=== PATIENT | female | born 1990 | race Caucasian/White ===

== ENCOUNTER 2017-01-12 07:47 | Emergency (ER) | payer BC, MEDICAID ==
[2017-01-12 08:03] VITALS: BP 133/81
--- NOTE | 2017-01-12 09:30 | UC ---
Shoulder Pain HPI - HPI Summary HPI Summary: WAS PUTTING CHILD IN CAR SEAT YESTERDAY WHEN SHE FELT A POP IN HER LEFT UPPER BACK/SHOULDER AREA. HAD A HARD TIME SLEEPING DUE TO DISCOMFORT. IBUPROFEN NOT HELPING. - History of Current Complaint Chief Complaint: UCUpperExtremity Stated Complaint: SHOULDER/BACK INJURY Time Seen by Provider: 01/12/17 08:34 Hx Obtained From: Patient Hx Last Menstrual Period: 01/05/17 Onset/Duration: Sudden Onset, Lasting Hours, Still Present Timing: Constant Severity Initially: Moderate Severity Currently: Moderate Location Of Pain: Is Discrete @ - LEFT UPPER BACK Pain Intensity: 7 Pain Scale Used: 0-10 Numeric Character: Sharp Aggravating Factor(s): Movement Alleviating Factor(s): Rest Associated Signs And Symptoms: Positive: Negative - Allergies/Home Medications Allergies/Adverse Reactions: Allergies Allergy/AdvReac Type Severity Reaction Status Date / Time Banana Allergy Intermediate Anaphylatic Verified 01/12/17 08:03 Shock Tree Nuts Allergy Intermediate Anaphylatic Verified 01/12/17 08:03 Shock Topiramate [From Topamax] AdvReac Intermediate Nausea And Verified 01/12/17 08: 03 Vomiting Home Medications: Home Medications Venlafaxine EXT RELEASE CAP* [Effexor Xr CAP*] 1 PO DAILY 01/12/17 [History] PMH/Surg Hx/FS Hx/Imm Hx Endocrine History Of: Denies: Diabetes, Thyroid Disease Cardiovascular History Of: Denies: Cardiac Disorders, Hypertension, Pacemaker/ICD, Congestive Heart Failure Respiratory History Of: Reports: Bronchitis Denies: COPD, Asthma GI/ History Of: Denies: Ulcer, Renal Disease Psychological History Of: Reports: Anxiety, Depression - Surgical History Surgical History: Yes Surgery Procedure, Year, and Place: Right shoulder arthroscopy 5 years ago Csection 2016 - Family History Known Family History: Negative: Diabetes - Social History Alcohol Use: None Alcohol Amount: drank 11 beers last night Substance Use Type: None 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 Smoking Status (MU): Light Every Day Tobacco Smoker Type: Cigarettes Amount Used/How Often: 1/2 ppd - Immunization History Most Recent Influenza Vaccination: aug 2014 Most Recent Tetanus Shot: 2012 Most Recent Pneumonia Vaccination: unsure Review of Systems Constitutional: Negative Skin: Negative Respiratory: Negative Cardiovascular: Negative Gastrointestinal: Negative Musculoskeletal: Arthralgia, Myalgia All Other Systems Reviewed And Are Negative: Yes Physical Exam Triage Information Reviewed: Yes Appearance: Well-Appearing, No Pain Distress, Well-Nourished Vital Signs: Initial Vital Signs Temp 97.1 F 01/12/17 07:54 Pulse 86 01/12/17 07:54 Resp 18 01/12/17 07:54 BP 133/81 01/12/17 07:54 Pulse Ox 98 01/12/17 07:54 Vital Signs Reviewed: Yes Eyes: Positive: Conjunctiva Clear ENT: Positive: Hearing grossly normal Neck: Positive: Supple Respiratory: Positive: No respiratory distress, No accessory muscle use Cardiovascular: Positive: Pulses Normal Abdomen Description: Positive: Soft Musculoskeletal: Positive: ROM Intact, No Edema, Other: - TTP LEFT TRAPEZIOUS MUSCLE. NO BONY TENDERNESS Neurological: Positive: Alert Psychological: Positive: Age Appropriate Behavior Skin: Negative: rashes Shoulder Course/Dx - Differential Dx/Diagnosis Differential Diagnosis/HQI/PQRI: Bursitis, Rotator Cuff Injury, Sprain Provider Diagnoses: ACUTE MUSCLE STRAIN Discharge - Discharge Plan Condition: Stable Disposition: HOME Prescriptions: Cyclobenzaprine TAB* [Flexeril TAB*] 10 mg PO BID PRN #30 tab PRN Reason: Pain Naproxen [Naproxen EC] 500 mg PO BID PRN #30 tab PRN Reason: Pain Patient Education Materials: Muscle Strain (ED) Referrals: Josh Atkinson MD [Primary Care Provider] - If Needed
== END 2017-01-12 09:00 | disposition home or self-care (01) ==
LOC: UCEAST 07:47
DX: S46.912A Strain of unspecified muscle, fascia and tendon at shoulder and upper arm level, left arm, initial encounter (principal); X58.XXXA Exposure to other specified factors, initial encounter; Y93.89 Activity, other specified; Y92.9 Unspecified place or not applicable; Z88.8 Allergy status to other drugs, medicaments and biological substances; F17.210 Nicotine dependence, cigarettes, uncomplicated
CPT/HCPCS: 99212; G0463

== ENCOUNTER 2017-07-08 09:44 | Emergency (ER) | payer BC ==
[2017-07-08 09:52] VITALS: BP 120/78
[2017-07-08] MEDS ORDERED: Tetan/Diph/Pertus SYR(Tdap)* 0.5 ML SYR(BOOSTRIX) use SYR IM ONE (10:16)
[2017-07-08] MEDS ORDERED: Cephalexin CAP* 500 MG PO ONE (10:19)
--- NOTE | 2017-07-08 10:25 | UC ---
Skin Complaint HPI - HPI Summary HPI Summary: ABSCESS DEVELOPING ON LEFT UPPER THIGH FOR TWO DAYS WORSENING. POSSIBLE INGROWN HAIR FROM SHAVING. NO HISTORY OF TICK BITES. NO HISTORY OF MRSA. NO HISTORY OF FREQUENT OR PREVIOUS SKIN INFECTIONS. NO FEVER. NO DM. - History of Current Complaint Chief Complaint: UCSkin Time Seen by Provider: 07/08/17 10:10 Stated Complaint: SKIN COMPLAINT Hx Obtained From: Patient, Family/[employer] Hx Last Menstrual Period: 06/08/17 Onset/Duration: Gradual Onset, Lasting Days, Worse Since - PROGRESSIVE Skin Exposure Onset/Duration: Days Ago Onset Severity: Mild Current Severity: Moderate Location: Discrete - LEFT UPPER THIGH Character: Redness, Raised, Painful Aggravating: Touch Alleviating: Nothing Associated Signs & Symptoms: Positive: Tenderness, Red Streaks. Negative: Fever , Chills, Cough, Drainage Related History: Trauma - SHAVING, Possible Reaction to: Environmental Exposure - Allergy/Home Medications Allergies/Adverse Reactions: Allergies Allergy/AdvReac Type Severity Reaction Status Date / Time Banana Allergy Intermediate Anaphylatic Verified 07/08/17 09:47 Shock Tree Nuts Allergy Intermediate Anaphylatic Verified 07/08/17 09:47 Shock Topiramate [From Topamax] AdvReac Intermediate Nausea And Verified 07/08/17 09: 47 Vomiting Review of Systems Constitutional: Negative Skin: Other - 6CM X 6CM CIRCULAR ERYTHEMATOUS AREA LEFT PROMIMOMEDIAL THIGH, 2CM X 3CM INDURATED CENTER Eyes: Negative ENT: Negative Respiratory: Negative Cardiovascular: Negative Gastrointestinal: Negative Genitourinary: Negative Motor: Negative Neurovascular: Negative Musculoskeletal: Negative Neurological: Negative Psychological: Negative All Other Systems Reviewed And Are Negative: Yes PMH/Surg Hx/FS Hx/Imm Hx Previously Healthy: Yes - Surgical History Surgical History: Yes Surgery Procedure, Year, and Place: Right shoulder arthroscopy 5 years ago Csection 2016 - Family History Known Family History: Negative: Diabetes - Social History Occupation: Employed Full-time Lives: With Family Alcohol Use: Rare Alcohol Amount: drank 11 beers last night Substance Use Type: None 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 Smoking Status (MU): Light Every Day Tobacco Smoker Type: Cigarettes Amount Used/How Often: 1/2 ppd Cessation Counseling: Patient Advised to Stop - Immunization History Most Recent Influenza Vaccination: aug 2014 Most Recent Tetanus Shot: 2012 Most Recent Pneumonia Vaccination: unsure Physical Exam Triage Information Reviewed: Yes Appearance: Well-Appearing, Well-Nourished, Pain Distress - MILD Vital Signs: Initial Vital Signs Temp 98.5 F 07/08/17 09:49 Pulse 100 07/08/17 09:49 Resp 20 07/08/17 09:49 BP 120/78 07/08/17 09:49 Pulse Ox 100 07/08/17 09:49 Vital Signs Reviewed: Yes Eye Exam: Normal ENT Exam: Normal ENT: Positive: Normal ENT inspection, Hearing grossly normal, TMs normal Dental Exam: Normal Neck exam: Normal Neck: Positive: Supple, Nontender, No Lymphadenopathy Respiratory Exam: Normal Respiratory: Positive: Chest non-tender, Lungs clear, Normal breath sounds, No respiratory distress, No accessory muscle use Cardiovascular Exam: Normal Cardiovascular: Positive: RRR, No Murmur, Pulses Normal Abdominal Exam: Normal Musculoskeletal Exam: Normal Musculoskeletal: Positive: Strength Intact, ROM Intact Neurological Exam: Normal Psychological Exam: Normal Psychological: Positive: Normal Response To Family Skin: Positive: Other - 6CM X 6CM CIRCULAR ERYTHEMATOUS AREA LEFT PROMIMOMEDIAL THIGH, 2CM X 3CM INDURATED CENTER WITHOUT FLUCTUANCE Course/Dx - Differential Diagnoses - Skin Complaint Differential Diagnoses: Abscess, Cellulitis, Diabetes, Erythema Nodosum, Systemic Illness, Tick Born Illness, Other - FOLLICULITIS - Diagnoses Provider Diagnoses: CELLULITIS LEFT SUPERIOR THIGH Discharge - Discharge Plan Condition: Stable Disposition: HOME Prescriptions: Cephalexin CAP* [Keflex CAP*] 500 mg PO QID #40 cap Patient Education Materials: Cellulitis (ED), Abscess (ED) Referrals: Josh Atkinson MD [Primary Care Provider] - Images Front/Back of Body, Lg (Hale): 1 - 6CM X 6CM CIRCULAR ERYTHEMATOUS AREA LEFT PROMIMOMEDIAL THIGH, 2CM X 3CM INDURATED CENTER WITHOUT FLUCTUANCE
== END 2017-07-08 10:40 | disposition home or self-care (01) ==
LOC: UCEAST 09:44
DX: L03.116 Cellulitis of left lower limb (principal); Z23 Encounter for immunization; Z88.8 Allergy status to other drugs, medicaments and biological substances; F17.210 Nicotine dependence, cigarettes, uncomplicated
CPT/HCPCS: 90471; 90715; 99212; A9270-GY; G0463

== ENCOUNTER → 2017-07-11 09:19 | Emergency (ER) | payer BC ==
[~2017-07-11 09:19] MED LIST: Ketorolac INJ* 30 MG/ML 1 ML VIAL IV PUSH ONE; Lidocaine 1% INJ* 10 MG/ML 30 ML SDV INJ ONE
--- NOTE | 2017-07-11 10:35 | ED ---
Skin Complaint - HPI Summary HPI Summary: Pt here w/ progressively worsening skin infection on Lt upper thigh. Started as redness and swelling.... days ago. Was seen at and treated w/ keflex. Pt had GI SE from keflex so requested a change - this happened on 07/09/2017 to bactrim and doxycycline - she's not had GI SE with this however her wound is getting larger and advancing up to groin. Has had N/V - no valentina fever, chills. Pain is difficult to deal with - worse w/ standing, walking - better at rest and with percocet on board. No known h/o MRSA - reports this was most likely from shaving with an old razor, some rust on blades. Wound just stared draining today - no cx taken yet as has been dry up until now. - History of Current Complaint Chief Complaint: EDRashSkinAbscess Time Seen by Provider: 07/11/17 10:12 Stated Complaint: LEFT LEG INFECTION Hx Obtained From: Patient, Family/Excel Specialist - , mom Hx Last Menstrual Period: 06/08/17 Pain Intensity: 8 - Allergy/Home Medications Allergies/Adverse Reactions: Allergies Allergy/AdvReac Type Severity Reaction Status Date / Time Banana Allergy Intermediate Anaphylatic Verified 07/08/17 09:47 Shock Tree Nuts Allergy Intermediate Anaphylatic Verified 07/08/17 09:47 Shock Topiramate [From Topamax] AdvReac Intermediate Nausea And Verified 07/08/17 09: 47 Vomiting PMH/Surg Hx/FS Hx/Imm Hx Previously Healthy: Yes Endocrine/Hematology History: Denies: Hx Anticoagulant Therapy, Hx Blood Disorders, Hx Diabetes, Hx Systemic Lupus Erythematosus, Hx Thyroid Disease, Hx Unexplained Bleeding, Autoimmune Disease Cardiovascular History: Denies: Hx Congestive Heart Failure, Hx Hypertension, Hx Pacemaker/ICD Respiratory History: Reports: Hx Pneumonia - SEP 2012 Denies: Hx Asthma, Hx Chronic Obstructive Pulmonary Disease (COPD) GI History: Denies: Hx Ulcer History: Denies: Hx Dialysis, Hx Renal Disease Musculoskeletal History: Denies: Hx Rheumatoid Arthritis Sensory History: Denies: Hx Hearing Aid Psychiatric History: Reports: Hx Anxiety, Hx Depression, Hx Inpatient Treatment , Hx Community Mental Health Tx, Hx Suicide Attempt, Hx Substance Abuse Denies: Hx Eating Disorder, Hx Panic Disorder, Hx of Violent Episodes Against Others - Cancer History Hx Chemotherapy: No - Surgical History Surgery Procedure, Year, and Place: Right shoulder arthroscopy 5 years ago Csection 2016 - Immunization History Date of Tetanus Vaccine: 06/20 Date of Influenza Vaccine: Fall 2011 Immunizations Up to Date: Yes Infectious Disease History: No Infectious Disease History: Denies: Hx Clostridium Difficile, Hx Hepatitis, Hx Human Immunodeficiency Virus (HIV), Hx of Known/Suspected MRSA, Hx Shingles, Hx Tuberculosis, Hx Known/ Suspected VRE, Hx Known/Suspected VRSA, History Other Infectious Disease, Traveled Outside the [place] in Last 30 Days - Family History Known Family History: Positive: None Negative: Diabetes - Social History Occupation: Employed Full-time Lives: With Family Alcohol Use: Occasionally Hx Substance Use: No Substance Use Type: Reports: None 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 Hx Tobacco Use: Yes Smoking Status (MU): Current Every Day Smoker Type: Cigarettes Amount Used/How Often: 1/2 ppd Review of Systems Constitutional: Negative Negative: Fever, Chills Cardiovascular: Negative Negative: Chest Pain Respiratory: Negative Negative: Shortness Of Breath Positive: Vomiting, Nausea Positive: no symptoms reported Musculoskeletal: Other - see HPI Skin: Other - see HPI Neurological: Negative Psychological: Normal All Other Systems Reviewed And Are Negative: Yes Physical Exam Triage Information Reviewed: Yes Vital Signs On Initial Exam: Initial Vitals Temp Pulse Resp BP Pulse Ox 97.4 F 99 17 131/64 98 07/11/17 09:21 07/11/17 09:21 07/11/17 09:21 07/11/17 09:21 07/11/17 09:21 Vital Signs Reviewed: Yes Appearance: Positive: Well-Appearing, No Pain Distress - at rest - affected area of leg TTP and painful w/ movement, Obese Skin: Positive: Warm - well defined area of erythematous skin over Lt thigh.... peripheral border 24cm at max in size, indurated central area 7cm in size - central area of serosanginous d/c appears ulcerated and 5mm in diameter; warm to touch, TTP; erythema has moved beyond 2 perviously marked skin borders Head/Face: Positive: Normal Head/Face Inspection Eyes: Positive: EOMI ENT: Positive: Hearing grossly normal Respiratory/Lung Sounds: Positive: Breath Sounds Present Cardiovascular: Positive: Pulses are Symmetrical in both Upper and Lower Extremities Abdomen Description: Positive: Soft Musculoskeletal: Positive: Normal, Strength/ROM Intact Neurological: Positive: Normal, Sensory/Motor Intact, Alert, Oriented to Person Place, Time, CN Intact II-III Psychiatric: Positive: Normal Procedures - Incision and Drainage Site: left proximal, medial thigh Anesthesia: Local, Lidocaine Instrument(s): Scalpel - #11 - serosanginous d/c w/ chunks of purulence vs. sebaceous material, no valentina sac identified; irrigated w/ sterile saline; hemodynamically stable Packing: Gauze - 1/" sterile plain gauze - covered with ab gauze pad + RASHID wrap Diagnostics - Vital Signs Vital Signs Temp Pulse Resp BP Pulse Ox 07/11/17 09:40 98.2 F 86 16 106/57 97 07/11/17 09:21 97.4 F 99 17 131/64 98 - Laboratory Result Diagrams: 07/11/17 11:26 07/11/17 11:26 Lab Statement: Any lab studies that have been ordered have been reviewed, and results considered in the medical decision making process. Re-Evaluation - Re-Evaluation First Eval Change: Improved Course/Dx - Diagnoses Provider Diagnoses: Abscess, Cellulitis Discharge - Discharge Plan Condition: Stable Disposition: HOME Patient Education Materials: Abscess (ED), Incision and Drainage (ED), Wound Healing and Your Diet (ED) Referrals: Josh Atkinson MD [Primary Care Provider] - Additional Instructions: Rest, ice for pain/swelling, elevate to prevent bleeding Apply heat to aid in drainage Keep dressing in place for 24-48 hours - after this time, seek medical follow- up for packing change, wound assessment - call PCP for appointment or go to urgent care/ED Complete antibiotics as directed - if your culture reveals a need of change in antibiotics, we will call you and send new medication to pharmacy for you You may continue ibuprofen and percocet as needed for pain *If you develop fever, chills, vomiting, headache, return to ED
[2017-07-11 12:02] LABS: Hematocrit 38 % (35-47); Hemoglobin 12.9 g/dl (12.0-16.0); Mean Corpuscular HGB Conc 34 g/dl (31-36); Mean Corpuscular Hemoglobin 30 pg (27-31); Mean Corpuscular Volume 89 fL (80-97); Mean Platelet Volume 8 um3 (7.4-10.4); Red Blood Count 4.28 10^6/ul (4.0-5.4); Red Cell Distribution Width 13 % (10.5-15); White Blood Count 11.9 10^3/ul (3.5-10.8)
[2017-07-11 12:18] LABS: Albumin 3.8 g/dL (3.2-5.2); BUN/Creatinine Ratio 12.7 (8-20); C Reactive Protein 159.7 mg/L (< 5.00); EGFR Non-African American 98.7 (>60); Globulin 3.2 g/dL (2-4); Potassium 3.4 mmol/L (3.5-5.0); Total Bilirubin 0.5 mg/dL (0.2-1.0)
[2017-07-11 13:42] VITALS: BP 112/68
--- NOTE | 2017-07-12 09:28 | PN ---
Progress Note - Progress Note Date of Service: 07/11/17 Note: Patient was called at 9:25am to discuss culture results and to see how patient was doing. Patient called back stating abscess/wound is sore however getting better Culture results were positive for both MRSA and s. aureus. Patient was placed on doxycycline and bactrim, which have coverage for MRSA. Patient was only given Bactrim for 5 days, will give another 5 days supply. Sent to pharmacy. Has enough doxycycline. Follow up with primary care as additional doses may be needed. Aware of worsening signs and symptoms to watch out for and return if occur. No further change required at this time.
== END | disposition home or self-care (01) ==
LOC: ED 09:19
DX: R11.2 Nausea with vomiting, unspecified (principal); L02.91 Cutaneous abscess, unspecified; L03.90 Cellulitis, unspecified
CPT/HCPCS: 10060; 36415; 80053; 83605; 85025; 86140; 87070; 87077; 87186; 87205; 87640; 87641; 96374; 96375; 99283; J1885; J2001

== ENCOUNTER 2017-07-12 15:06 | Emergency (ER) | payer BC ==
[2017-07-12] MEDS ORDERED: HYDROcodone/ACETAMIN 5-325 MG* 1 TAB PO ONE (16:10)
[2017-07-12] MEDS ORDERED: Lidocaine 1% MPF wEPI 200,000* 30 ML SDV INJ ONE (16:11)
[2017-07-12 16:53] VITALS: BP 107/70
--- NOTE | 2017-07-12 17:15 | ED ---
Jony Noguera Nikita, scribed for Yoseph Sethi MD on 07/12/17 at 1547 . Laceration/Wound HPI - HPI Summary HPI Summary: This patient is a 26 year old F presenting to [facility] with a chief complaint of L leg pain since yesterday. 4 days ago, the pt had a laceration done for cellulitis. Pt reports the wound was draining a little yesterday, so the she went to the ED, where the wound was opened and packed (24 hours ago). Pt reports purulent and bloody drainage. The CC is described as sharp and stabbing pain. The patient rates the pain 7/10 in severity. Symptoms aggravated by nothing. Symptoms alleviated by nothing. Patient reports chills, erythema past the L knee, swelling, nausea, and abdominal pain. Patient denies fever, rhinorrhea, and sore throat. - History of Current Complaint Stated Complaint: REPACK LEG LAC Time Seen by Provider: 07/12/17 15:42 Hx Obtained From: Patient Hx Last Menstrual Period: 06/08/17 Onset/Duration: Lasting Days - Laceration done 4 days ago; repackaged and drained yesterday., Still Present Aggravating: Nothing Alleviating: Nothing Onset Severity: Severe Current Severity: Severe Pain Intensity: 7 Pain Scale Used: 0-10 Numeric Associated Signs & Symptoms: Pain - Pain in L thigh. Patient reports chills, erythema past the L knee, swelling, nausea, and abdominal pain. Patient denies fever, rhinorrhea, and sore throat. Pt reports purulent and bloody drainage from laceration. - Allergy/Home Medications Allergies/Adverse Reactions: Allergies Allergy/AdvReac Type Severity Reaction Status Date / Time Banana Allergy Intermediate Anaphylatic Verified 07/12/17 15:50 Shock Tree Nuts Allergy Intermediate Anaphylatic Verified 07/12/17 15:50 Shock Topiramate [From Topamax] AdvReac Intermediate Nausea And Verified 07/12/17 15: 50 Vomiting PMH/Surg Hx/FS Hx/Imm Hx Endocrine/Hematology History: Denies: Hx Anticoagulant Therapy, Hx Blood Disorders, Hx Diabetes, Hx Systemic Lupus Erythematosus, Hx Thyroid Disease, Hx Unexplained Bleeding Cardiovascular History: Denies: Hx Congestive Heart Failure, Hx Hypertension, Hx Pacemaker/ICD Respiratory History: Reports: Hx Pneumonia - SEP 2012, Other Respiratory Problems/Disorders - PNEUMONIA IN SEP 2012 Denies: Hx Asthma, Hx Chronic Obstructive Pulmonary Disease (COPD) GI History: Denies: Hx Ulcer History: Denies: Hx Dialysis, Hx Renal Disease Musculoskeletal History: Denies: Hx Rheumatoid Arthritis Sensory History: Denies: Hx Hearing Aid Psychiatric History: Reports: Hx Anxiety, Hx Depression, Hx Inpatient Treatment , Hx Community Mental Health Tx, Hx Suicide Attempt, Hx Substance Abuse Denies: Hx Eating Disorder, Hx Panic Disorder, Hx of Violent Episodes Against Others - Cancer History Hx Chemotherapy: No - Surgical History Surgery Procedure, Year, and Place: Right shoulder arthroscopy 5 years ago Csection 2016 - Immunization History Date of Tetanus Vaccine: 06/20 Date of Influenza Vaccine: Fall 2011 Infectious Disease History: Denies: Hx Clostridium Difficile, Hx Hepatitis, Hx Human Immunodeficiency Virus (HIV), Hx of Known/Suspected MRSA, Hx Shingles, Hx Tuberculosis, Hx Known/ Suspected VRE, Hx Known/Suspected VRSA, History Other Infectious Disease - Family History Known Family History: Positive: None Negative: Diabetes - Social History Alcohol Use: Occasionally Alcohol Amount: drank 11 beers last night Hx Substance Use: No Substance Use Type: Reports: None 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 Negative: Fever Positive: Other - NEGATIVE: rhinorrhea. Negative: Sore Throat Positive: Abdominal Pain, Nausea Positive: Other - L thigh pain from laceration (purulent and bloody drainage yesterday) Positive: Other - Erythema in thigh and past L knee, swelling All Other Systems Reviewed And Are Negative: Yes Physical Exam - Summary Physical Exam Summary: HEENT: The pupils are equal and reactive. The tympanic membranes are intact. Respiratory: Lungs are clear to auscultation. Cardiovascular: Heart is regular rate and rhythm. Abdomen: The abdomen is soft and non-tender. Skin: There is 17 cm of erythema on the left leg. There is an 8cm x 7 cm induration and fluctuance in the left thigh; fluctual area where the incision is. The incision packing was removed in incidence. Serous segment of purulent drainage noted. MRSA positive. Triage Information Reviewed: Yes Vital Signs On Initial Exam: Initial Vitals Temp Pulse Resp BP Pulse Ox 97.2 F 82 16 107/70 97 07/12/17 15:43 07/12/17 15:43 07/12/17 15:43 07/12/17 15:43 07/12/17 15:43 Vital Signs Reviewed: Yes Procedures - Procedure Summary Procedure Summary: There is an abscess in the left lower extremity with exploration and repacking. Pt was given Lidocaine 1% with Epinephrine (15 cc local around the abscess). Cleansed wound with Hibiclens. Explored the wound with hemostats. Broke up a septa and loculations. About 60 ccs of blood was expressed from the wound; no pus was evident. The wound was packed with 1 in plain gauze. Diagnostics - Vital Signs Vital Signs Temp Pulse Resp BP Pulse Ox 07/12/17 15:43 97.2 F 82 16 107/70 97 - Laboratory Lab Statement: Any lab studies that have been ordered have been reviewed, and results considered in the medical decision making process. Laceration Repair Course/Dx - Course Assessment/Plan: This patient is a 26 year old F presenting to [facility] with a chief complaint of L leg pain since yesterday. 4 days ago, the pt had a laceration done for cellulitis. Pt reports the wound was draining a little yesterday, so the she went to the ED, where the wound was opened and packed (24 hours ago). Pt reports purulent and bloody drainage. The CC is described as sharp and stabbing pain. The patient rates the pain 7/10 in severity. Symptoms aggravated by nothing. Symptoms alleviated by nothing. Patient reports chills, erythema past the L knee, swelling, nausea, and abdominal pain. Patient denies fever, rhinorrhea, and sore throat. In the ED course, pt was given Lidocaine 1% with Epinephrine (15 cc local around the abscess). Cleansed wound with Hibiclens. Explored the wound with hemostats. Broke up a septa and loculations. About 60 ccs of blood was expressed from the wound; no pus was evident. The wound was packed with 1 in plain gauze. She will keep packing in place and see her PCP tomorrow for recheck. She will continue her medications at home ( Doxicycline). There is an abscess in the left lower extremity with exploration and repacking. Pt will be discharged with instructions to return if increased redness, nausea, vomiting, and chills occur. Pt is agreeable with this plan. - Differential Dx Differental Diagnoses: Abscess, Cellulitis, Other - repacked wound, MRSA, - Clinical Impression Provider Diagnoses: Abscess, Cellulitis and abscess of left leg Discharge - Discharge Plan Condition: Stable Disposition: HOME Patient Education Materials: Abscess (ED) Forms: *Work Release Referrals: Josh Atkinson MD [Primary Care Provider] - (Follow up tomorrow with PCP. Instructed to return if increased redness, nausea, vomiting, and chills.) The documentation as recorded by the Jony bruno Nikita accurately reflects the service I personally performed and the decisions made by me, Yoseph Sethi MD.
== END 2017-07-12 16:52 | disposition home or self-care (01) ==
LOC: UCEAST 15:06
DX: L02.416 Cutaneous abscess of left lower limb (principal); L03.116 Cellulitis of left lower limb; R68.83 Chills (without fever); R11.0 Nausea; R10.9 Unspecified abdominal pain; F41.9 Anxiety disorder, unspecified; F32.9 Major depressive disorder, single episode, unspecified; F17.210 Nicotine dependence, cigarettes, uncomplicated
CPT/HCPCS: 10060; 99211; G0463; J2001

== ENCOUNTER 2018-02-03 13:59 | Emergency (ER) | payer BC ==
[2018-02-03 14:52] VITALS: BP 125/70
--- NOTE | 2018-02-03 15:19 | UC ---
Lower Extremity/Ankle HPI - HPI Summary HPI Summary: This nice 27-year-old lady comes to the urgent care today with chief complaint of left foot pain. Pain is actually between her fibula and talus on the lateral side. Patient had no specific injury but she has been walking every day at least 3 miles at lunchtime with her friends at work. Patient states she has no pain while at rest but she has pain when she is up on her foot walking that radiates down into her proximal fifth MT. - History of Current Complaint Chief Complaint: UCLowerExtremity Stated Complaint: FOOT PAIN Time Seen by Provider: 02/03/18 15:13 Hx Obtained From: Patient Hx Last Menstrual Period: 01/14/18 ?: No Onset/Duration: Sudden Onset, Lasting Days, Still Present Severity Initially: Moderate Severity Currently: Moderate Pain Intensity: 7 Pain Scale Used: 0-10 Numeric Aggravating Factor(s): Standing, Ambulation Alleviating Factor(s): Rest, Elevation, Ice, OTC Meds Able to Bear Weight: Yes - Allergies/Home Medications Allergies/Adverse Reactions: Allergies Allergy/AdvReac Type Severity Reaction Status Date / Time banana Allergy Intermediate Anaphylatic Verified 02/03/18 16:18 Shock topiramate Allergy Intermediate Anaphylatic Verified 02/03/18 16:18 Shock Tree Nuts Allergy Intermediate Anaphylatic Verified 02/03/18 14:45 Shock PMH/Surg Hx/FS Hx/Imm Hx Previously Healthy: No Psychological History: Anxiety Other History Of: Negative For: Anticoagulant Therapy - Surgical History Surgical History: Yes Surgery Procedure, Year, and Place: Right shoulder arthroscopy 5 years ago Csection 2016 - Family History Known Family History: Positive: None Negative: Diabetes - Social History Occupation: Employed Full-time Lives: With Family Alcohol Use: None - Last alcohol was 2 years ago Substance Use Type: None Substance Use Comment - 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 Smoking Status (MU): Former Smoker Type: Cigarettes Amount Used/How Often: 1/2 ppd Household Exposure Type: Cigarettes - Immunization History Most Recent Influenza Vaccination: aug 2014 Most Recent Tetanus Shot: 2013 Most Recent Pneumonia Vaccination: unsure Review of Systems Constitutional: Negative Skin: Negative Eyes: Negative ENT: Negative Respiratory: Negative Cardiovascular: Negative Gastrointestinal: Negative Genitourinary: Negative Motor: Negative Neurovascular: Negative Musculoskeletal: Arthralgia - Left lateral foot pain below her fibula radiating into her proximal fifth metatarsal Neurological: Negative Psychological: Negative Is Patient Immunocompromised?: No All Other Systems Reviewed And Are Negative: Yes Physical Exam Triage Information Reviewed: Yes Appearance: Well-Appearing, Well-Nourished, Pain Distress - mild Vital Signs: Initial Vital Signs Temp 98.1 F 02/03/18 14:46 Pulse 75 02/03/18 14:46 Resp 18 02/03/18 14:46 BP 125/70 02/03/18 14:46 Pulse Ox 99 02/03/18 14:46 Vital Signs Reviewed: Yes Eye Exam: Normal Eyes: Positive: Conjunctiva Clear ENT Exam: Normal ENT: Positive: Normal ENT inspection, Hearing grossly normal. Negative: Trismus , Muffled voice, Hoarse voice Dental Exam: Normal Neck exam: Normal Neck: Positive: Supple, Nontender Respiratory Exam: Normal Respiratory: Positive: No respiratory distress, No accessory muscle use Cardiovascular Exam: Normal Cardiovascular: Positive: RRR, Pulses Normal, Brisk Capillary Refill Musculoskeletal Exam: Other Musculoskeletal: Positive: Other: - Pain and tenderness in left foot is described no swelling no neuromotor circulation deficits distal to area of pain Neurological Exam: Normal Neurological: Positive: Alert, Muscle Tone Normal Psychological Exam: Normal Skin Exam: Normal Diagnostics - Radiology No standard instances Xray Interpretation: No Acute Changes Radiology Interpretation Completed By: ED Physician, Radiologist Lower Extremity Course/Dx - Course Course Of Treatment: Woo wrap postop shoe crutches may weight-bear as tolerated Tylenol ibuprofen for pain. Stop lower body exercising until pain resolves then may restart back slowly if pain fails to resolve reoccurs follow with orthopedic doctor as recommended on referral - Differential Dx/Diagnosis Provider Diagnoses: Overuse injury to her left foot, nicotine dependent Discharge - Sign-Out/Discharge Documenting (check all that apply): Discharge - Discharge Plan Condition: Stable Disposition: HOME Patient Education Materials: Ibuprofen (By mouth), Foot Sprain (ED), R.I.C.E. Treatment (ED) Referrals: Simeon Coelho MD [Medical Doctor] - 1 Week Additional Instructions: Dalila, The pain in her foot seems to be from repetitive stress from your daily exercise. I with stop your three-mile walk, elevate and ice and rest your foot. Then restart back slowly. If you have pain gets worse or fails to resolve follow-up with the orthopedic doctor. In the meantime rest ice and elevation and Woo wrap a postop shoe for willing or able to start walking on her foot comfortably and some crutches until then. - Billing Disposition and Condition Condition: STABLE Disposition: HOME
--- NOTE | 2018-02-03 15:46 | RAD ---
HISTORY: Left foot pain, pain fifth metatarsal COMPARISONS: None VIEWS: 3, Frontal, lateral, and oblique views of the left foot FINDINGS: BONE DENSITY: Normal. BONES: There is no displaced fracture. JOINTS: There is no arthropathy. ALIGNMENT: There is no dislocation. SOFT TISSUES: Unremarkable. OTHER FINDINGS: None. IMPRESSION: NO ACUTE OSSEOUS INJURY. IF SYMPTOMS PERSIST, RECOMMEND REPEAT IMAGING.
== END 2018-02-03 16:10 | disposition home or self-care (01) ==
LOC: UCEAST 13:59
DX: M70.872 Other soft tissue disorders related to use, overuse and pressure, left ankle and foot (principal); Y93.01 Activity, walking, marching and hiking; F41.9 Anxiety disorder, unspecified; Z87.891 Personal history of nicotine dependence
CPT/HCPCS: 99213; G0463

== ENCOUNTER → 2018-10-08 10:06 | Emergency (ER) | payer BC ==
[~2018-10-08 10:06] MED LIST changes: -Ketorolac INJ* 30 MG/ML 1 ML VIAL IV PUSH ONE; -Lidocaine 1% INJ* 10 MG/ML 30 ML SDV INJ ONE; +oxyCODONE/Acetamin 5/325 MG* TAB PO ONE
--- NOTE | 2018-10-08 10:42 | ED ---
GI/ HPI - HPI Summary HPI Summary: The pt is a 28 y/o female presenting to [facility] c/o vaginal bleeding since 2 months ago on 07/23/2018 worsened yesterday night. The bleeding soaked her sheets. She had her IUD removed in August 2018 followed by the use of 4 control pills to no relief. She notes blood clots, abdominal, pelvic pain and cold sweats but denies SP, SOB and dizziness. The pain rated 7/10 in severity radiates to the back and lower extremities. She is scheduled for a DNC with Dr. Alpa Benoit MD in 13 days (10/21/2018). She took Percocet for pain and Doxycycline for prophylaxis. Home Medications Medication Instructions Recorded Confirmed Type Venlafaxine EXT RELEASE CAP* 1 tab PO DAILY 01/12/17 02/03/18 History [Effexor Xr CAP*] - History of Current Complaint Chief Complaint: EDOBProblems Time Seen by Provider: 10/08/18 10:35 Stated Complaint: ABD PAIN Hx Obtained From: Patient Hx Last Menstrual Period: 01/14/18 Onset/Duration: Started Weeks Ago - 07/23/2018, Still Present, Worse Since - Yesterday night Timing: Constant Severity: Moderate Current Severity: Moderate Vaginal Bleeding Description: Clots Pain Intensity: 7 Location of Pain: Radiates to: - Back, Abd, bilateral LE, Other - Pelvic Associated Signs and Symptoms: Positive: Back Pain Additional Signs & Symptoms: Positive: Vaginal Bleeding Alleviating Factor(s): Nothing - Allergy/Home Medications Allergies/Adverse Reactions: Allergies Allergy/AdvReac Type Severity Reaction Status Date / Time banana Allergy Intermediate Anaphylatic Verified 10/08/18 10:17 Shock topiramate Allergy Intermediate Anaphylatic Verified 10/08/18 10:17 Shock Tree Nuts Allergy Intermediate Anaphylatic Verified 10/08/18 10:17 Shock Home Medications: Home Medications DOXYcycline CAP(*) [DOXYcycline 100MG CAP(*)] 1 cap PO BID 10/08/18 [History Confirmed 10/08/18] Norethindrone-Ethinyl Estrad [Nortrel 1-35 28 Tablet] 1 tab PO DAILY 10/08/18 [ History Confirmed 10/08/18] oxyCODONE/Acetamin 5/325 MG* [Percocet 5/325 TAB*] 1 tab PO Q6H PRN 10/08/18 [ History Confirmed 10/08/18] PMH/Surg Hx/FS Hx/Imm Hx Previously Healthy: No Endocrine/Hematology History: Denies: Hx Anticoagulant Therapy, Hx Blood Disorders, Hx Diabetes, Hx Systemic Lupus Erythematosus, Hx Thyroid Disease, Hx Unexplained Bleeding Cardiovascular History: Denies: Hx Congestive Heart Failure, Hx Hypertension, Hx Pacemaker/ICD Respiratory History: Reports: Hx Pneumonia - SEP 2012, Other Respiratory Problems/Disorders - PNEUMONIA IN SEP 2012 Denies: Hx Asthma, Hx Chronic Obstructive Pulmonary Disease (COPD) GI History: Denies: Hx Ulcer History: Denies: Hx Dialysis, Hx Renal Disease Musculoskeletal History: Denies: Hx Rheumatoid Arthritis Sensory History: Denies: Hx Hearing Aid Psychiatric History: Reports: Hx Anxiety, Hx Depression, Hx Inpatient Treatment , Hx Community Mental Health Tx, Hx Suicide Attempt, Hx Substance Abuse Denies: Hx Eating Disorder, Hx Panic Disorder, Hx of Violent Episodes Against Others - Cancer History Cancer Type, Location and Year: None reported Hx Chemotherapy: No - Surgical History Surgery Procedure, Year, and Place: Right shoulder arthroscopy 5 years ago Csection 2016 - Immunization History Date of Tetanus Vaccine: 06/20 Date of Influenza Vaccine: Fall 2011 Infectious Disease History: Yes Infectious Disease History: Denies: Hx Clostridium Difficile, Hx Hepatitis, Hx Human Immunodeficiency Virus (HIV), Hx of Known/Suspected MRSA, Hx Shingles, Hx Tuberculosis, Hx Known/ Suspected VRE, Hx Known/Suspected VRSA, History Other Infectious Disease, Traveled Outside the [place] in Last 30 Days - Family History Known Family History: Negative: Diabetes - Social History Occupation: Employed Full-time Lives: With Family Alcohol Use: Occasionally Hx Substance Use: No Substance Use Type: Reports: None Substance Use Comment - 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 Skin: The skin is warm and dry and skin color reflects adequate perfusion. HEENT: The head is normocephalic and atraumatic. The pupils are equal and reactive. The conjunctivae are clear and without drainage. Nares are patent and without drainage. Mouth reveals moist mucous membranes and the throat is without erythema and exudate. The external ears are intact. The ear canals are patent and without drainage. The tympanic membranes are intact. Neck: The neck is supple with full range of motion and non-tender. There are no carotid bruits. There is no neck vein distension. Respiratory: Chest is non-tender. Lungs are clear to auscultation and breath sounds are symmetrical and equal. Cardiovascular: Heart is regular rate and rhythm. There is no murmur or rub auscultated. There is no peripheral edema and pulses are symmetrical and equal. Abdomen: The lower abdomen is soft and mildly tender bilaterally. There are normal bowel sounds heard in all four quadrants and there is no organomegaly palpated. Musculoskeletal: There is no back tenderness noted. Extremities are non-tender with full range of motion. There is good capillary refill. There is no peripheral edema or calf tenderness elicited. Neurological: Patient is alert and oriented to person, place and time. The patient has symmetrical motor strength in all four extremities. Cranial nerves are grossly intact. Deep tendon reflexes are symmetrical and equal in all four extremities. Psychiatric: The patient has an appropriate affect and does not exhibit any anxiety or depression. Triage Information Reviewed: Yes Vital Signs On Initial Exam: Initial Vitals Temp Pulse Resp BP Pulse Ox 97.7 F 81 18 131/80 98 10/08/18 10:18 10/08/18 10:18 10/08/18 10:18 10/08/18 10:18 10/08/18 10:18 Vital Signs Reviewed: Yes Diagnostics - Vital Signs Vital Signs Temp Pulse Resp BP Pulse Ox 10/08/18 10:18 97.7 F 81 18 131/80 98 - Laboratory Result Diagrams: 10/08/18 10:58 10/08/18 10:58 Lab Statement: Any lab studies that have been ordered have been reviewed, and results considered in the medical decision making process. Re-Evaluation - Re-Evaluation First Eval Re-Evaluation Time: 13:12 Change: Improved Comment: I discussed the discharge plan with the pt. She reports decreased pain. GIGU Course/Dx - Course Course Of Treatment: Ms. Soto presented to the emergency department because she has been having dysfunctional uterine bleeding for couple of months. It got worse in the last day or so and she was "soaking the bed" last night. She does complain of some mild low abdominal cramping but otherwise no other symptoms. She was nontoxic in appearance with stable vital signs on her arrival here. Her labs were unremarkable and her vital signs remained stable. I spoke with Dr. Valerio about getting her follow-up this week with Dr. Benoit. She is scheduled for a D&C on the and they may want to consider moving that up. - Diagnoses Provider Diagnoses: Dysfunctional uterine bleeding - Physician Notifications Discussed Care Of Patient With: Davi Shannan - Sightseeing Guide Time Discussed With Above Provider: 12:59 Instructed by Provider To: Have Pt Call For Appt. Discharge - Sign-Out/Discharge Documenting (check all that apply): Patient Departure - DC - Discharge Plan Condition: Stable Disposition: HOME Patient Education Materials: Dysfunctional Uterine Bleeding (ED) Referrals: Josh Atkinson MD [Primary Care Provider] - Alpa Benoit MD [Medical Doctor] - Additional Instructions: Call Dr. Benoit's office on Wednesday10/10/2018 morning for an appointment. Return to ED for any new or worsening symptoms - Billing Disposition and Condition Condition: STABLE Disposition: Home - Attestation Statements Document Initiated by Yolandaibceasar: Yes Documenting Scribe: Mine Johansen Provider For Whom Giovanni is Documenting (Include Credential): Dr. Luca Gallardo MD Scribe Attestation: Mine Noguera , scribed for Dr. Luca Gallardo MD on 10/08/18 at 2133. Scribe Documentation Reviewed: Yes Provider Attestation: The documentation as recorded by the Mine bruno accurately reflects the service I personally performed and the decisions made by me, Dr. Luca Gallardo MD Status of Scribe Document: Viewed
[2018-10-08 11:21] LABS: ABS Basophils 0.1 10^3/ul (0-0.2); ABS Eosinophils 0.1 10^3/ul (0-0.6); ABS Lymphocytes 2.7 10^3/ul (1.0-4.8); ABS Monocytes 0.5 10^3/ul (0-0.8); ABS Neutrophils 2.9 10^3/ul (1.5-7.7); ABS Nucleated RBC 0 10^3/ul; Eosinophil % 1.7 %; Hematocrit 40 % (35-47); Hemoglobin 13.8 g/dl (12.0-16.0); Lymphocyte % 42.8 %; Mean Corpuscular HGB Conc 34 g/dl (31-36); Mean Corpuscular Hemoglobin 30 pg (27-31); Mean Corpuscular Volume 88 fL (80-97); Mean Platelet Volume 7.2 fL (7.4-10.4); Nucleated Red Blood Cells % 0.3; Platelet Count 197 10^3/ul (150-450); Red Blood Count 4.61 10^6/ul (4.00-5.40); Red Cell Distribution Width 13 % (10.5-15); White Blood Count 6.4 10^3/ul (3.5-10.8)
[2018-10-08 11:29] LABS: INR 0.9 (0.77-1.02)
[2018-10-08 11:34] LABS: EGFR Non-African American 81.3 (>60)
[2018-10-08 13:24] VITALS: BP 121/73
== END | disposition home or self-care (01) ==
LOC: ED 10:06
DX: N93.8 Other specified abnormal uterine and vaginal bleeding (principal); R10.2 Pelvic and perineal pain; M54.9 Dorsalgia, unspecified; Z87.891 Personal history of nicotine dependence
CPT/HCPCS: 36415; 80053; 84702; 85025; 85610; 85730; 86850; 86900; 86901; 99282; A9270-GY

== ENCOUNTER 2018-10-19 10:18 | Emergency (ER) | payer BC ==
--- OUTSIDE RECORDS SUMMARY | 2018-10-19 10:25 | XMS REPORT | Continuity of Care Document ---
:1990 External Reference #:[id number] Author Name Ava Franz Care Team Providers Name Role Phone Alpa Benoit MD Care Team Information Manager Telemetry Unavailable Payers Type Date Identification Numbers Payment Provider Subscriber Policy Number: [id number] [employer] Dalila Soto PayID: [id number] [address] [address] [place] [address] Advance Directives Description No Information Available Problems Description No Information Family History Date Family Member(s) Problem(s) Comments Father Alzheimer's Disease Social History Type Date Description Comments Sex Unknown Lives With Lives With Children Tobacco Use Start: Unknown Light tobacco smoker (10 or fewer cigarettes/day) ETOH Use Rarely consumes alcohol Tobacco Use Start: Unknown Light tobacco smoker (10 or fewer cigarettes/day) Smoking Status Reviewed: 10/06/18 Light tobacco smoker (10 or fewer cigarettes/day) Allergies, Adverse Reactions, Alerts Description No Information Medications Medication Date Status Form Strength Qnty SIG Indications Ordering Provider Oxycodone-Acet Active Tablets 5-325mg 20tabs one R10.2 Alpa aminophen 018 tablet by MD Cy mouth q6 hours as needed for strong pain Venlafaxine 0 Active Tablets 75mg take one Unknown HCL 000 tablet daily. Doxycycline Active Capsules 50mg take one Unknown Hyclate 000 capsule/t ablet daily by mouth Immunizations Description No Information Available Vital Signs Date Vital Result Comment 10/06/2018 8:27am Height 70 inches 5'10" Weight 223.00 lb Heart Rate 100 /min BP Systolic 108 mmHg BP Diastolic 80 mmHg O2 % BldC Oximetry 98 % BMI (Body Mass Index) 32.0 kg/m2 Last Menstrual Period [id number] Results Test Date Facility Test Result H/L Range Note CBC Auto Diff 10/06/2018 [facility] White Blood 6.5 10^3/uL N 3.5-10.[address] [place] [address] [phone] Red Blood Count 4.71 10^6/uL N 4.00-5.40 Hemoglobin 14.2 g/dL N 12.0-16.0 Hematocrit 41 % N 35-47 Mean Corpuscular Volume 88 fL N 80-97 Mean Corpuscular Hemoglobin 30 pg N 27-31 Mean Corpuscular HGB Conc 34 g/dL N 31-36 Red Cell Distribution Width 13 % N 10.5-15 Platelet Count 215 10^3/uL N 150-450 Mean Platelet Volume 7.3 fL Low 7.4-10.4 Abs Neutrophils 2.9 10^3/uL N 1.5-7.7 Abs Lymphocytes 2.8 10^3/uL N 1.0-4.8 Abs Monocytes 0.6 10^3/uL N 0-0.8 Abs Eosinophils 0.1 10^3/uL N 0-0.6 Abs Basophils 0 10^3/uL N 0-0.2 Abs Nucleated RBC 0 10^3/uL Granulocyte % 44.6 % Lymphocyte % 43.5 % Monocyte % 9.8 % Eosinophil % 1.5 % Basophil % 0.6 % Nucleated Red Blood Cells % 0 Laboratory test 10/06/2018 [facility] HCG < 0.60 mIU/ mL 1 finding [address] [place] [address] [phone] TSH (Thyroid Stim Horm) 1.59 mcIU/mL N 0.34-5.60 Laboratory test finding 10/06/2018 [facility] Cytology <pending > [address] [place] [address] [phone] 1 <5.0 Negative 5.0 - 25.0 Indeterminate (Repeat testing recommended after 72 hours) >25.0 Positive Perimenopausal women can display HCG levels of up to 20 mIU/mL Procedures Description No Information Available Encounters Description No Information Available Plan of Treatment Future Appointment(s):10/21/2018 10:00 am - Alpa Benoit MD at [facility]10/13/2018 8:30 am - Alpa Benoit MD at [facility]10/27/2018 3:30 pm - Alpa Benoit MD at [facility]2017 - Alpa Benoit MDN92.6 Irregular menstruation, unspecifiedFollow up: Going to out pt lab at [facility] directly from here for lab work.We will be calling to schedule D&C, Hysteroscopy, polyp [id number] Pelvic and perineal painNew Medication:Oxycodone-Acetaminophen 5-325 mg - one tablet by mouth q6 hours as needed for strong painComments:Rec continue Ibuprofen prn, heat pack. Percocet as last resort as sparingly as possible. Discussed not to drive with Percocet. Can be constipating. Will give out of work note as needed. Rec ER if develops worsening pain or fever.N84.0 Polyp of corpus uteriComments:Will sched D&C, Hysteroscopy, possible Myosure
--- OUTSIDE RECORDS SUMMARY | 2018-10-19 10:25 | XMS REPORT | Continuity of Care Document ---
:1990 External Reference #:[id number] Author Name MichaelLogan [email or web address] Care Team Providers Name Role Phone Alpa Benoit MD Care Team Information Outside Salesperson Unavailable Payers Type Date Identification Numbers Payment Provider Subscriber Policy Number: [id number] [employer] Dalila Soto PayID: [id number] [address] [address] [place] [address] Advance Directives Description No Information Available Problems Description No Information Family History Date Family Member(s) Problem(s) Comments Father Alzheimer's Disease Social History Type Date Description Comments Sex Unknown Lives With Lives With Children Tobacco Use Start: Unknown Light tobacco smoker (10 or fewer cigarettes/day) ETOH Use Rarely consumes alcohol Tobacco Use Start: Unknown Light tobacco smoker (10 or fewer cigarettes/day) Smoking Status Reviewed: 10/13/18 Light tobacco smoker (10 or fewer cigarettes/day) Allergies, Adverse Reactions, Alerts Description No Known Drug Allergies Medications Medication Date Status Form Strength Qnty SIG Indications Ordering Provider Ibuprofen Active Tablets 600mg 20tabs one R10.2 Dvorah 018 tablet by MD Cy mouth q6 as needed pain Doxycycline Active Capsules 100mg 14caps one R10.2 Dvorah Hyclate 018 tablet by MD Cy mouth twice a day x 7 days Oxycodone-Acet Active Tablets 5-325mg 20tabs one R10.2 Dvorah aminophen 018 tablet by MD Cy mouth q6 hours as needed for strong pain Venlafaxine 0 Active Tablets 75mg take one Unknown HCL 000 tablet daily. Doxycycline 0 Active Capsules 100mg one Unknown Hyclate 000 tablet po bid Immunizations Description No Information Available Vital Signs Date Vital Result Comment 10/13/2018 8:25am Height 70 inches 5'10" Weight 225.00 lb Heart Rate 87 /min BP Systolic 110 mmHg BP Diastolic 72 mmHg O2 % BldC Oximetry 98 % BMI (Body Mass Index) 32.3 kg/m2 10/06/2018 8:27am Height 70 inches 5'10" Weight 223.00 lb Heart Rate 100 /min BP Systolic 108 mmHg BP Diastolic 80 mmHg O2 % BldC Oximetry 98 % BMI (Body Mass Index) 32.0 kg/m2 Last Menstrual Period [id number] Results Test Date Facility Test Result H/L Range Note CBC Auto Diff 10/06/2018 [facility] White Blood 6.5 10^3/uL N 3.5-10.[address] [place] [address] [phone] Red Blood Count 4.71 10^6/uL N 4.00-5.40 [...] Blood Cells % 0 Laboratory test 10/06/2018 [facility] HCG < 0.60 mIU/ mL [address] [place] [address] [phone] TSH (Thyroid Stim Horm) 1.59 mcIU/mL N 0.34-5.60 Laboratory test 10/06/2018 [facility] Cytology SEE RESULT BELOW [address] [place] [address] [phone] 1 <5.0 Negative 5.0 - 25.0 Indeterminate (Repeat testing recommended after 72 hours) >25.0 Positive Perimenopausal women can display HCG levels of up to 20 mIU/mL 2 SEE RESULT BELOW Name: DALILA SOTO : [address]: Alpa Benoit MD Acct: [id number] Unit: [id number] AGE: 28 Location: [facility] Re10/06/18 SEX: F Status: REG REF SPEC: [id number] MARNI: 10/06/18-[address] [facility] [address]: Alpa Benoit MD REQ: [id number] RECD: 10/06/18 STATUS: SOUT _ ORDERED: TP IMAGE ANALYS COMMENTS: [id number] Negative for Intraepithelial lesion or Malignancy A. Ectocervical/Endocervical Specimen Adequacy: Satisfactory of evaluation Transformation zone component identified Patient Information: HPV: Thin Layer Pap Test w/reflex to high risk HPV RNA testing when ASCUS Actual Specimen Date: 10/06/18 ?: N Post Menopausal?: N Hysterectomy?: N Signed by and Reported on: ELIEL Diana(ASCP) [id number] This Pap test was evaluated with the assistance of the [employer] Test Imaging System. Due to cytologic findings at the rig builder helper microscope, comprehensive manual rescreening by a Program Director/Traffic Director may be required. The Pap Smear is a screening test designed to aid in the detection of premalignant and malignant conditions of the uterine cervix. It is not a diagnostic procedure and should not be used as the sole means of detecting cervical cancer. Both false- positive and false- negative reports do occur. Depending on your risk status, a Pap smear should be obtained and evaluated every 1-3 years. END OF REPORT DEPARTMENT OF PATHOLOGY, [address] [place] [address] Marshall Whitehead M.D. Director [facility] # [id number] Procedures Description No Information Available Encounters Description No Information Available Plan of Treatment Future Appointment(s):10/21/2018 10:00 am - Alpa Benoit MD at [facility]10/27/2018 3:30 pm - Alpa Benoit MD at [facility]10/13/2018 - Alpa Benoit MDN92.6 Irregular menstruation, [id number] Pelvic and perineal painNew Medication:Ibuprofen 600 mg - one tablet by mouth q6 as needed painDoxycycline Hyclate 100 mg - one tablet by mouth twice a day x 7 days
--- OUTSIDE RECORDS SUMMARY | 2018-10-19 10:25 | XMS REPORT | Continuity of Care Document ---
:1990 External Reference #:[id number] Author Name Kt Prasad MD Address Karen [address] & Karen [place] [address] Care Team Providers Name Role Phone Rahel Palmer N.P. Care Team Information 3D Modeler Unavailable Josh Atkinson M.D. Primary Care Physician Unavailable Payers Type Date Identification Numbers Payment Provider Subscriber Effective: Policy Number: Shmuel Soto 2018 [id number] [facility] PayID: [id number] 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 Tobacco Use Start: Unknown End: Unknown Former Cigarette Smoker 1 Pack Daily Tobacco Use Start: Unknown Never Smoked Cigars Tobacco Use Start: Unknown Never Smoked A Pipe Smokeless Tobacco Never Used Smokeless Tobacco ETOH Use Currently rarely consumes alcohol Allergies, Adverse Reactions, Alerts Date Description Reaction Status Severity Comments 09/22/2018 Topamax Active GI issues Medications Medication Date Status Form Strength Qnty SIG Indications Ordering Provider Venlafaxine Active Caps ER 75mg 1 tab Darlow, HCL ER 000 24HR daily Josh Jones Trinessa Lo Active Tablets 0.18/0.215/ Spencer 000 0.25 mg-25 N.P., Rahel Garcia Immunizations Description No Information Available Vital Signs Date Vital Result Comment 09/22/2018 10:32am Weight 227.00 lb Weight 102.967 kg Height 70 inches 5'10" Height in cm's 177.8 cm BMI (Body Mass Index) 32.6 kg/m2 Results Description No Information Available Procedures Description No Information Available Encounters Description No Information Available Plan of Treatment 09/22/2018 - Kt Prasad, MDD23.30 Other benign neoplasm of skin of unspecified part of faceComments:On examination with microscopic visualization I was not too concerned about this lesion I did examine it and I thought it was a possible comedonal I suggest recheck only if it grows.
--- OUTSIDE RECORDS SUMMARY | 2018-10-19 10:26 | XMS REPORT ---
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 Lymph# 2.0 x10^3/UL 0.7-4.9 Codington# 0.1 x10^3/UL 0.1-0.9 Gran % 58.0 % 42.2-75.2 Lymph % 38.6 % 20.5-51.1 Codington% 3.4 % 1.7-9.3 Lyme Western Blot Ser 08/30/2014 IgG P93 Ab. Absent IgG P66 Ab. Absent IgG P58 Ab. Absent IgG P45 Ab. Absent IgG P41 Ab. Absent IgG P39 Ab. Absent IgG P30 Ab. Absent IgG P28 Ab. Absent IgG P23 Ab. Absent IgG P18 Ab. Absent Lyme IgG WB Interp. Negative 32 IgM P41 Ab. Absent IgM P39 Ab. Absent IgM P23 Ab. Absent Lyme IgM WB Interp. Negative 33 Comprehensive Metabolic Prof 03/29/2014 Sodium 139 mEq/L 134-149 Potassium 4.5 mEq/L 3.6-5.5 Chloride 104 mEq/L 94-112 Carbon Dioxide 28 mEq/L 21-32 Glucose 109 mg/dL High 70-105 34 BUN 10 mg/dL 6-26 Creatinine 0.8 mg/dL 0.6-1.4 BUN/Creat Ratio 12.5 CALC 8.0-36.0 Calcium 9.9 mg/dL 8.6-10.2 Total Protein 7.8 g/dL 6.3-8.1 Albumin 5.3 g/dL 3.8-5.5 Globulin 2.5 g/dL 2.0-4.8 A/G Ratio 2.1 CALC 0.6-2.3 Alk. Phosphatase 52 U/L 30-110 Alt (SGPT) 13 U/L 7-35 Ast (Sgot) 16 U/L 5-34 Total Bilirubin 0.5 mg/dL 0.2-1.3 Laboratory test finding 03/29/2014 Free T4 0.90 ng/dL 0.75-1.54 TSH 0.83 mIU/L 0.50-6.00 Laboratory test finding 03/29/2014 LDH 117 U/L Low 140-271 35 C Reactive Protein < 1.00 mg/L < 5.00 36 HIV 1/2 AB Evaluation 03/29/2014 HIV 1 2 Antibody Nonreactive Nonreactive 37 Protein Electrophoresis 03/29/2014 Total Protein(Pep) 7.8 g/dL 6.3 - 7.9 Albumin 4.1 g/dL 3.4-4.7 Alpha-1 Globulin 0.3 g/dL 0.1-0.3 Alpha-2 Globulin 1.1 g/dL 0.6-1.0 Beta Globulin 0.8 g/dL 0.7-1.2 Gamma Globulin 1.5 g/dL 0.6-1.6 Albumin/Globulin Ratio 1.13 Impression See Comment 38 Laboratory test finding 03/29/2014 Sed Rate (Fma/CMC/Centrex) 5 mm CBC Electronic (a) 03/29/2014 WBC 6.1 3.6-9.6 RBC 5.05 3.90-5.70 Hemoglobin (Fma/CMC/CTX) 14.9 g/dL 12.1 - 17.2 Hematocrit (Fma/CMC/CTX) 45.1 % 36.1 - 50.3 Platelets 209 10^3/ul 150-400 Lymph% 29.4 % 17.0-48.0 Mixed% 3.2 Neutrophils % 67.4 Mean Corpuscular Vol 89 82.2-97.4 Mean Corpuscular Hemoglobin 29.4 27.6-33.3 Mean Corpuscular Hemo Concen 33.0 32.0-36.0 RDW 13.5 11.6-13.7 Mean Platelet Volume 7.6 5.5-11.0 1 1 sst 2 RESULTS VERIFIED BY REPEAT ANALYSIS 3 Acute inflammation: >10.00 4 SEE RESULT BELOW Name: DALILA KOTHARI : [address]: Juan J Higuera MD Acct: [id number] Unit: [id number] AGE: 26 Location: ED Re07/11/17 SEX: F Status: REG ER SPEC: [id number] MARNI: 07/11/17-1240 [facility] DR: Mesha DEWITT REQ: [id number] RECD: 07/11/17-1311 STATUS: ALEJANDRINA COX DR: Juan J Atkinson MD _ SOURCE: THIGH,LEFT SPDESC: ORDERED: MRSA/SA SSTI, Culture Stain COMMENTS: Verbal to [id number] by [id number] at 1438 on 07/11/17. Results read back accurately. Procedure Result Reported Site MRSA/S. aureus SSTI PCR Final 07/11/17- 1437 ML Organism 1 MRSA POSITIVE Organism 2 S.AUREUS POSITIVE Wound/Misc Gram Stain Final 07/11/17- 1333 ML 2+ Neutrophils 1+ Epithelial Cells 1+ Gram Positive Cocci Wound/Misc Culture Final 07/13/17- 1054 ML Organism 1 MRSA Quantity 3+ 1. MRSA M.I.C. RX --------- ------ Penicillin >=0.5 R Clindamycin <=0.25 S Erythromycin >=8 R Gentamicin <=0.5 S Linezolid 2 S Nitrofurantoin <=16 S Oxacillin >=4 R * Quinupristin/Dalfopristin 0.5 S Rifampin <=0.5 S CONTINUED ON NEXT PAGE * ML=Testing performed at Main Lab DEPARTMENT OF PATHOLOGY, [address] [place] [address] Marshall Whitehead M.D. Director [facility] # [id number] Patient: DALILA KOTHARI [id number] (Continued) Specimen: [id number] Collected: 07/11/17-1239 Received: 07/11/17-1311 (Continued) Procedure Result Reported Site Wound/Misc Culture Final (continued) 07/13/17- 1053 1. MRSA (continued) M.I.C. RX --------- ------ Tetracycline <=1 S Doxycycline - Deduced S * Minocycline - Deduced S Trimethoprim/Sulfamethoxazole <=10 S Vancomycin <=0.5 S Imipenem-Deduced R * Ampicillin/Sulbactam-Deduced R Cefazolin-Deduced R * These antibiotics are not available in the [facility] Formulary Contact the Microbiology Department for any additional antibiotic reporting. * ML - MAIN LAB ([facility]) . END OF REPORT * ML=Testing performed at Main Lab DEPARTMENT OF PATHOLOGY, [address] [place] [address] Marshall Whitehead M.D. Director [facility] # [id number] 5 SEE RESULT BELOW Name: DALILA KOTHARI : [address]: Juan J Higuera MD Acct: [id number] Unit: [id number] AGE: 26 Location: ED Re07/11/17 SEX: F Status: REG ER SPEC: [id number] MARNI: 07/11/17-1240 [facility] DR: Mesha DEWITT REQ: [id number] RECD: 07/11/17-1311 STATUS: RES OTHR DR: Juan J Atkinson MD _ SOURCE: THIGH,LEFT SPDESC: ORDERED: Culture Stain Procedure Result Reported Site Wound/Misc Gram Stain Final 07/11/17- 1333 ML 2+ Neutrophils 1+ Epithelial Cells 1+ Gram Positive Cocci Wound/Misc Culture PENDING * ML - MAIN LAB ([facility]) . END OF REPORT * ML=Testing performed at Main Lab DEPARTMENT OF PATHOLOGY, [address] [place] [address] Marshall Whitehead M.D. Director [facility] # [id number] 6 [facility] Severe Sepsis and Septic Shock Management Bundle Measure requires all lactic acids initially measuring >2.0 mmol/L be repeated. 7 Because ethnic data is not always readily available, this report includes an eGFR for both -Americans and non- Americans. The National Kidney Disease Education Program (NKDEP) does not endorse the use of the MDRD equation for patients that are not between the ages of 18 and 70, are , have extremes of body size, muscle mass, or nutritional status, or are non- or non-. According to the National Kidney Foundation, irrespective of diagnosis, the stage of the disease is based on the level of kidney function: Stage Description GFR(mL/min/1.73 m(2)) 1 Kidney damage with normal or decreased GFR 90 2 Kidney damage with mild decrease in GFR 60-89 3 Moderate decrease in GFR 30-59 4 Severe decrease in GFR 15-29 5 Kidney failure <15 (or dialysis) 8 Merchandising Manager: [id number] Dennise Im 9 *Ascorbic acid is present which may interfere with detection of blood. 10 SEE RESULT BELOW Name: DALILA KOTHARI : [address]: Colby Mckeon MD Acct: [id number] Unit: [id number] AGE: 24 Location: ED Re05/13/15 SEX: F Status: REG ER SPEC: [id number] MARNI: 05/13/[address]: Colby Mckeon MD REQ: [id number] RECD: 05/13/15 STATUS: RES OTHR DR: Josh Atkinson MD _ SOURCE: STOOL SPDESC: ORDERED: Hemoccult, Stool Culture, O P: Giar/Crypt Procedure Result Verified Site Stool Culture PENDING Stool Specimen Description Final 05/13/15- 5 ML Stool Color Brown Stool Form Nonformed Stool Consistency Mucoid Shiga Toxin 1 2 PENDING Stool Occult Blood Final 05/13/15- 1938 ML Stool Occult Blood Positive O P: Giardia/Cryptospor Screen PENDING * ML - MAIN LAB ([facility]) . END OF REPORT * ML=Testing performed at Main Lab DEPARTMENT OF PATHOLOGY, [address] [place] [address] Marshall Whitehead M.D. Director [facility] # [id number] 11 SEE RESULT BELOW Name: DALILA KOTHARI : [address]: Colby cMkeon MD Acct: [id number] Unit: [id number] AGE: 24 Location: ED Re05/13/15 SEX: F Status: DEP ER SPEC: [id number] MARNI: 05/13/[address]: Colby Mckeon MD REQ: [id number] RECD: 05/13/15 STATUS: ALEJANDRINA COX DR: Josh Atkinson MD _ SOURCE: STOOL SPDESC: ORDERED: Hemoccult, Stool Culture, O P: Giar/Crypt Procedure Result Verified Site Stool Culture Final 05/15/15- 0935 ML Result No enteric pathogens isolated Testing for Salmonella, Shigella, Aeromonas, Plesiomonas, Yersinia and Campylobacter are included in a Stool Culture. Vibrio spp not routinely tested for in a stool culture. If testing is desired, please request specifically when placing test order. Sensitivities not routinely performed on stool isolates, as antibiotics may prolong the carriage rate of bacteria. Please contact the microbiology lab if sensitivities are required. Stool Specimen Description Final 05/13/15- 1925 ML Stool Color Brown Stool Form Nonformed Stool Consistency Mucoid Shiga Toxin 1 2 Final 05/14/15- 1236 ML Organism 1 Negative Shiga Toxin 1 2 Immunochromatographic Assay CONTINUED ON NEXT PAGE * ML=Testing performed at Main Lab DEPARTMENT OF PATHOLOGY, [address] [place] [address] Marshall Whitehead M.D. Director [facility] # [id number] Patient: DALILA KOTHARI [id number] (Continued) Specimen: [id number] Collected: 05/13/15 Received: 05/13/15 (Continued) Procedure Result Verified Site Shiga Toxin 1 2 Final (continued) 05/14/15- 1236 Stool Occult Blood Final 05/13/15- 1938 ML Stool Occult Blood Positive O P: Giardia/Cryptospor Screen Final 05/14/15- 1406 ML Organism 1 Neg Cryptosporidium/Giardia Giardia and cryptosporidium antigen testing performed by enzyme immunoassay. If patient is immunocompromised or has traveled to or is from a developing country, a full ova and parasite exam with microscopic (OPMIC) is recommended. All samples will be held one month in case full ova and parasite testing is requested. Contact the Microbiology Department at [phone]. TEST LIMITATIONS: As with all diagnostic procedures, the results obtained should be used in conjunction with other clinical information available the physician, including confirmation by another method. Negative results can occur in samples containing antigen below lower limits of detection of the assay. One negative specimen does not rule out the possibility of a parasitic infection. To improve detection it is recommended that three specimens be collected on separate days over a period of not more than seven days. The use of colonic washes, aspirates or other diluted sample types has not been established and could affect the performance of the assay. Stool samples contaminated with an oily or particulate base (eg. Barium, mineral oil etc.) could interfere with the test and are not recommended. * ML - [facility] ([facility]) . END OF REPORT * ML=Testing performed at Main Lab DEPARTMENT OF PATHOLOGY, [address] [place] [address] Marshall Whitehead M.D. Director [facility] # [id number] 12 SEE RESULT BELOW Name: DALILA KOTHARI : [address]: Colby Mckeon MD Acct: [id number] Unit: [id number] AGE: 24 Location: ED Re05/13/15 SEX: F Status: DEP ER SPEC: [id number] MARNI: 05/13/[address]: Colby Mckeon MD REQ: [id number] RECD: 05/13/15 STATUS: ALEJANDRINA COX DR: Josh Atkinson MD _ SOURCE: STOOL SPDESC: ORDERED: C. diff PCR, Fecal Lactoferr Procedure Result Verified Site Stool Specimen Description Final 05/14/15- 0751 ML Stool Color Brown Stool Form Nonformed Stool Consistency Mucoid C. difficile PCR Final 05/14/15- 0954 ML Organism 1 Toxigenic C.diff NEGATIVE Organism 2 027 Presumptive NEGATIVE Fecal Lactoferrin (Stool WBC) Final 05/14/15- 1238 ML Fecal Lactoferrin Positive by Immunoassay TEST LIMITATIONS: Assay detects elevated levels of lactoferrin released from fecal leukocytes as a marker of intestinal inflammation. The test may not be appropriate in immunocompromised persons. Fecal samples from breast fed infants should not be used with this assay. * ML - MAIN LAB ([facility]) . END OF REPORT * ML=Testing performed at Main Lab DEPARTMENT OF PATHOLOGY, [address], [place], [place] [address] Marshall Whitehead M.D. Director [facility] # [id number] 13 SEE RESULT BELOW Name: DALILA KOTHARI : [address]: Colby Mckeon MD Acct: [id number] Unit: [id number] AGE: 24 Location: ED Re05/13/15 SEX: F Status: DEP ER SPEC: [id number] MARNI: 05/13/15 [facility] [address]: Colby Mckeon MD REQ: [id number] RECD: 05/13/15 STATUS: RES OTHR DR: Josh Atkinson MD _ SOURCE: STOOL SPDESC: ORDERED: Hemoccult, Stool Culture, O P: Giar/Crypt Procedure Result Verified Site Stool Culture PENDING Stool Specimen Description Final 05/13/15- 1925 ML Stool Color Brown Stool Form Nonformed Stool Consistency Mucoid Shiga Toxin 1 2 Final 05/14/15- 1236 ML Organism 1 Negative Shiga Toxin 1 2 Immunochromatographic Assay Stool Occult Blood Final 05/13/15- 1938 ML Stool Occult Blood Positive O P: Giardia/Cryptospor Screen Final 05/14/15- 1406 ML Organism 1 Neg Cryptosporidium/Giardia Giardia and cryptosporidium antigen testing performed by enzyme immunoassay. If patient is immunocompromised or has traveled to or is from a developing country, a full ova and parasite exam with microscopic (OPMIC) is recommended. All samples will be held one month in case full ova and parasite testing is requested. Contact the Microbiology Department at [phone]. TEST LIMITATIONS: As with all diagnostic procedures, the results obtained CONTINUED ON NEXT PAGE * ML=Testing performed at Main Lab DEPARTMENT OF PATHOLOGY, [address] [place] [address] Marshall Whitehead M.D. Director [facility] # [id number] Patient: DALILA KOTHARI [id number] (Continued) Specimen: [id number] Collected: 05/13/15 Received: 05/13/15 (Continued) Procedure Result Verified Site O P: Giardia/Cryptospor Screen Final (continued) 05/14/15- 1405 should be used in conjunction with other clinical information available the physician, including confirmation by another method. Negative results can occur in samples containing antigen below lower limits of detection of the assay. One negative specimen does not rule out the possibility of a parasitic infection. To improve detection it is recommended that three specimens be collected on separate days over a period of not more than seven days. The use of colonic washes, aspirates or other diluted sample types has not been established and could affect the performance of the assay. Stool samples contaminated with an oily or particulate base (eg. Barium, mineral oil etc.) could interfere with the test and are not recommended. * - [facility] ([facility]) . END OF REPORT * ML=Testing performed at Main Lab DEPARTMENT OF PATHOLOGY, [address] [place] [address] Marshall Whitehead M.D. Director [facility] # [id number] 14 Because ethnic data is not always readily available, this report includes an eGFR for both -Americans and non- Americans. The National Kidney Disease Education Program (NKDEP) does not endorse the use of the MDRD equation for patients that are not between the ages of 18 and 70, are , have extremes of body size, muscle mass, or nutritional status, or are non- or non-. According to the National Kidney Foundation, irrespective of diagnosis, the stage of the disease is based on the level of kidney function: Stage Description GFR(mL/min/1.73 m(2)) 1 Kidney damage with normal or decreased GFR 90 2 Kidney damage with mild decrease in GFR 60-89 3 Moderate decrease in GFR 30-59 4 Severe decrease in GFR 15-29 5 Kidney failure <15 (or dialysis) 15 Acute inflammation: >10.00 16 No significant growth. 17 scattered debris but nothing consistent with scabies feces or eggs 18 Presumptive Positive 19 The urine specimen was tested at the listed cutoffs: Drug class test level (ng/mL) Amphetamines 500 Barbituates 200 Benzodiazepine metabolites 200 Cocaine metabolites 150 Cannabinoids 50 Opiates 300 Pcp 25 This is a screening procedure. Positive results are not confirmed. Specimen was received without chain of custody. Results should be used for medical purposes only. 20 This test detects intact HCG only and is indicated for the early detection of . 21 Therapeutic concentration: <50 ug/mL Toxic concentration: >120 ug/mL 22 Because ethnic data is not always readily available, this report includes an eGFR for both -Americans and non- Americans. The National Kidney Disease Education Program (NKDEP) does not endorse the use of the MDRD equation for patients that are not between the ages of 18 and 70, are , have extremes of body size, muscle mass, or nutritional status, or are non- or non-. According to the National Kidney Foundation, irrespective of diagnosis, the stage of the disease is based on the level of kidney function: Stage Description GFR(mL/min/1.73 m(2)) 1 Kidney damage with normal or decreased GFR 90 2 Kidney damage with mild decrease in GFR 60-89 3 Moderate decrease in GFR 30-59 4 Severe decrease in GFR 15-29 5 Kidney failure <15 (or dialysis) 23 Non-immune <0.90 Equivocal 0.90 - 0.99 Immune >0.99 24 Negative <25.0 Equivocal 25.0 - 29.9 Positive >29.9 Presence of antibodies to Rubeola is presumptive evidence of immunity except when acute infection is suspected. 25 Negative <9.0 Equivocal 9.0 - 10.9 Positive >10.9 A positive result generally indicates past exposure to Mumps virus or previous vaccination. 26 Negative <0.91 Equivocal 0.91 - 1.09 Positive >1.09 Please note reference interval change 27 Negative <0.80 Equivocal 0.80 - 1.19 Positive >1.19 IgM levels may peak at 3-6 weeks post infection, then gradually decline. 28 This test was developed and its performance characteristics determined by [employer]. It has not been cleared or approved by the U.S. Food and Drug Administration. The FDA has determined that such clearance or approval is not necessary. This test is used for clinical purposes. It should not be regarded as investigational or research. 29 IgG titers if 1:64 or greater indicate exposure or acute and convalescent samples showing a four-fold increase, and/or the presence of IgM indicate recent or current infection. This test was developed and its performance characteristics determined by [employer]. It has not been cleared or approved by the U.S. Food and Drug Administration. The FDA has determined that such clearance or approval is not necessary. This test is used for clinical purposes. It should not be regarded as investigational or for research. 30 HGE IgG levels are detectable 7 to 10 days post infection and persist approximately one year. This test was developed and its performance characteristics determined by [employer]. It has not been cleared or approved by the U.S. Food and Drug Administration. The FDA has determined that such clearance or approval is not necessary. This test is used for clinical purposes. It should not be regarded as investigational or for research. 31 IgM levels usually rise 3 to 5 days post infection and fall to normal levels in approximately 30 to 60 days. This test was developed and its performance characteristics determined by [employer]. It has not been cleared or approved by the U.S. Food and Drug Administration. The FDA has determined that such clearance or approval is not necessary. This test is used for clinical purposes. It should not be regarded as investigational or for research. 32 Positive: 5 of the following Borrelia-specific bands: 18,23,28,30,39,41,45,58, 66, and 93. Negative: No bands or banding patterns which do not meet positive criteria. 33 Note: An equivocal or positive EIA result followed by a negative Western Blot result is considered NEGATIVE. An equivocal or positive EIA result followed by a positive Western Blot is considered POSITIVE by the CDC. Positive: 2 of the following bands: 23,39 or 41 Negative: No bands or banding patterns which do not meet positive criteria. Criteria for positivity are those recommended by CDC/ASTPHLD. p23=Osp C, t87=tgajxhrcd Note: Sera from individuals with the following may cross react in the Lyme Western Blot assays: other spirochetal diseases (periodontal disease, leptospirosis, relapsing fever, yaws, and pinta); connective autoimmune (Rheumatoid Arthritis and Systemic Lupus Erythematosus and also individuals with Antinuclear Antibody); other infections (Juntura Spotted Fever; Agustín-Chung Virus, and Cytomegalovirus). 34 RESULTS VERIFIED BY REPEAT ANALYSIS 35 3 GOLD TOP SSTS 36 Acute inflammation: >10.00 37 It is recognized that currently available assays for the detection of antibodies to HIV-1 and/or HIV-2 may not detect all infected individuals. HIV antibodies may be undetectable in some stages of the infection and in some clinical conditions. The performance of this assay has not been established for populations of infants or children. Assayed by Chemiluminescence Microparticle Immunoassay on the Siemens Advia Centaur CP. Values obtained with different methods or kits cannot be used interchangeably.The diagnostic specificity of the ADVIA Centaur 1/O/2 Enhanced assay in the low risk population was 99.90% (6052/6058) with a 95% confidence interval of 99.78 to 99.96%. 38 RESULT: No apparent monoclonal protein on serum electrophoresis. Test Performed by: [address] [address] Principal Cloud Architect: Marco Antonio Segovia III, M.D. Procedures Date CPT Code Description Status 08/26/2018 69221 Remove Intrauterine Device Completed 09/13/2017 35000 Electrocardiogram Complete Completed Encounters Type Date Location Provider CPT E/M Dx Office Visit 08/26/2018 10:00a [facility] [place] [address] N92.0 Z30.432 Z30.8 D48.5 Office Visit 04/22/2018 1:45p Main Office ROSENDA Farris 81806 K64.9 Office Visit 04/05/2018 1:00p [place] [address] K64.9 Office Visit 11/24/2017 1:50p [facility] Josh Atkinson M.D. 89559 M25.532 J06.9 Office Visit 09/13/2017 10:30a [facility] Josh Atkinson M.D. 89440 R00.2 E04.9 N92.6 Office Visit 07/13/2017 9:30a [place] [address] L02.416 L03.116 Office Visit 07/10/2017 11:10a Main Office Jae Mcgovern M.D. 65816 L03.114 L02.439 Office Visit 10/09/2016 9:15a Main Office ROSENDA Farris 36071 F41.1 F34.1 Office Visit 08/22/2016 12:00p Main Office ROSENDA Farris 06551 J06.9 Office Visit 07/15/2016 1:00p Main Office Tmi Cantu 92385 F41.1 Office Visit 10/25/2015 4:30p [facility] ROSENDA Wooten 14949 J01.90 Office Visit 08/27/2015 8:15a Main Office ROSENDA Wooten 82936 F33.40 F51.02 Z32.00 Office Visit 07/03/2015 8:15a [place] [address] 530.81 009.1 Office Visit 05/13/2015 3:00p [facility] Josh Atkinson M.D. 58904 009.1 Office Visit 02/25/2015 2:30p [place] [address] 789.03 787.01 Office Visit 02/21/2015 9:15a [facility] Tammy EspinozaCASSY 75004 789.03 Office Visit 02/19/2015 5:45p Main Office Jessica Watt Tim 15913 599.0 Office Visit 01/14/2015 3:50p [facility] Josh Atkinson M.D. 62537 782.1 Office Visit 12/28/2014 9:30a [place] [address] 599.0 Office Visit 12/22/2014 1:15p Main Office Josh Atkinson M.D. 25692 782.1 Office Visit 11/28/2014 2:10p [facility] Josh Atkinson M.D. 97697 296.30 305.00 536.8 Office Visit 10/22/2014 9:15a [facility] Vaishnavi Leal [facility] 862[address] V74.1 Office Visit 10/10/2014 9:15a [facility] Vaishnavi Leal [facility] 49308 V74.1 Office Visit 08/30/2014 11:30a [facility] Office Penny Queenrer [facility] [address]86 724.2 723.1 Office Visit 08/13/2014 2:30p [facility] Office Josh Atkinson M.D. 77315 300.02 305.1 307.49 241.0 V04.81 Office Visit 03/29/2014 1:30p Main Office Josh Atkinson M.D. 37267 780.79 300.02 300.4 305.03 Plan of Care 09/22/2018 - Rahel Palmer, NPN93.9 Abnormal uterine and vaginal bleeding, unspecifiedNew Labs:Hemogram ([facility])TSH ([facility]), SerumNew Xrays:Ultrasound Transvaginal Non-OBComments:Take 4 pills per day until your bleeding stops.If this new pill doesn't help, please let me know early next week and I can prescribe provera that you can gradually increase toAllNew Medication:Alyacen 1-35 mg-mcgComments:1. Patient has been queried about patient's goals/preferences and functional/lifestyle goals at relevant visits. If relevant, describe: Has been discussed, noted above2. Treatment goals as explainedto the patient: see above3. Are there barriers to meeting treatment goals? Yes If Yes, please describe: Barriers include possible insurance limits, disease process, and difficulty with lifestyle changes4. Self-Management goals as described to the patient: Yes, see above As always, we strongly encourage a healthy diet and making physical activity a part of your every day life. If you have questions about how or where to start, please contact the office.
[2018-10-19 10:35] VITALS: BP 125/71
--- NOTE | 2018-10-19 10:53 | UC ---
Abdominal Pain Female HPI - HPI Summary HPI Summary: 28 y/o female presents to the urgent care c/o a vaginal discharge w/ a foul odor since Wednesday10/17/2018. Pt reports she has Hx of dysfunctional vaginal bleeding on and off since Jul 23/2018 when her IUD was removed. She was Placed of OCP and her menstrual cycle hasn't been regular since then. On 2017 she was seen in the ER for a severe episode of vaginal bleeding. She was schedule for a D&C in 2 days, 10/21/2018 w/ DR Luong. She finished taking a Doxycycline PO this past Wednesday and that is when she thinks her period stopped. She still has pelvic pain on and off for which is been tanking Percocet. She is very concern about the odor. Pt denies urinary symptoms, fever, abdominal pain, flank pain, SOB, chest pain, N/V/D, Hx of STD's. - History of Current Complaint Chief Complaint: UCGeneralIllness Stated Complaint: PERSONAL Time Seen by Provider: 10/19/18 10:38 Hx Obtained From: Patient Hx Last Menstrual Period: stopped wednesday ?: No Onset/Duration: Gradual Onset, Lasting Days - 2 days, Still Present, Worse Since - today Timing: Constant Severity Initially: Mild Severity Currently: Moderate Pain Intensity: 7 - pelvic pain Pain Scale Used: 0-10 Numeric Location: Other - pelvic pain Radiates: No Character: Cramping Aggravating Factor(s): Other: - vaginal bleeding Alleviating Factor(s): OTC Analgesics Associated Signs and Symptoms: Positive: Vaginal Discharge. Negative: Diaphoresis, Fever, Cough, Chest Pain, Dizzy, Back Pain, Constipation, Blood in Stool, Urinary Symptoms, Decreased Appetite, Vaginal Bleeding, Nausea, Vomiting , Diarrhea - Risk Factors Ectopic Risk Factor: Negative Ovarian Torsion Risk Factor: Negative Allergies/Adverse Reactions: Allergies Allergy/AdvReac Type Severity Reaction Status Date / Time banana Allergy Intermediate Anaphylatic Verified 10/19/18 10:28 Shock topiramate Allergy Intermediate Anaphylatic Verified 10/19/18 10:28 Shock Tree Nuts Allergy Intermediate Anaphylatic Verified 10/19/18 10:28 Shock PMH/Surg Hx/FS Hx/Imm Hx Previously Healthy: Yes Other GI/ History: dysfuctional vaginal bleeding Neurological History: Migraine Psychological History: Anxiety, Depression Other History Of: Negative For: Anticoagulant Therapy - Surgical History Surgical History: Yes Surgery Procedure, Year, and Place: Right shoulder arthroscopy 5 years ago Csection 2016 - Family History Known Family History: Positive: Diabetes - Social History Occupation: Employed Full-time Lives: With Family Alcohol Use: Occasionally Alcohol Amount: drank 11 beers last night Substance Use Type: None Substance Use Comment - 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 Smoking Status (MU): Light Every Day Tobacco Smoker Type: Cigarettes Amount Used/How Often: 1/2 ppd Household Exposure Type: Cigarettes - Immunization History Most Recent Influenza Vaccination: aug 2014 Most Recent Tetanus Shot: 2012 Most Recent Pneumonia Vaccination: unsure Review of Systems All Other Systems Reviewed And Are Negative: Yes Constitutional: Positive: Negative Skin: Positive: Negative Eyes: Positive: Negative ENT: Positive: Negative Respiratory: Positive: Negative Cardiovascular: Positive: Negative Gastrointestinal: Positive: Negative Genitourinary: Positive: Vaginal/Penile Discharge, Other - pelvic pain. Negative: Dysuria, Frequency, Urgency, Vaginal/Penile Burning, Vaginal/Penile Itching Motor: Positive: Negative Neurovascular: Positive: Negative Musculoskeletal: Positive: Negative Neurological: Positive: Negative Psychological: Positive: Negative Is Patient Immunocompromised?: No Physical Exam - Summary Physical Exam Summary: Vital signs: reviewed General: well developed, well nourished female sitting in the examining table w /o any acute distress. Head: Normocephalic, no lesions. Eyes: PERRLA, EOM's full, conjunctiva clear, fundi grossly normal. Ears: EAC's clear, TM's normal. Nose: Mucosa normal, no obstruction. Throat: Clear, no exudates, no lesions. Neck: Supple, no masses, no thyromegaly, no bruits. Chest: Lungs clear, no rales, no rhonchi, no wheezes. Heart: RR, no murmurs, no rubs, no gallops. Abdomen: Soft, no tenderness, no masses, BS normal. Pelvic: I was assisted by nurse Anai. External genitalia within normal limits. There is no lesions there is no masses noted. Speculum exam: The vaginal luna are within normal limits w/ grayish w/ tinge of blood vaginal discharge w/ fishy odor, no the lesions or rashes. The cervix is closed with no lesions or masses. Pt w/ her menstrual period. There is no CMT's, and no adnexal masses. Sample sent to Lab for G/C and Affirm panel. Rectal: No lesions, no hemorrhoids, Back: Normal curvature, no tenderness. Extremities: FROM, no deformities, no edema, no erythema. Neuro: Physiological, no localizing findings. Skin: Normal, no rashes, no lesions noted. Triage Information Reviewed: Yes Vital Signs: Initial Vital Signs Temp 97.5 F 10/19/18 10:30 Pulse 75 10/19/18 10:30 Resp 17 10/19/18 10:30 BP 125/71 10/19/18 10:30 Pulse Ox 98 10/19/18 10:30 Abd Pain Female Course/Dx - Course Course Of Treatment: 28 y/o female presents to the urgent care c/o a vaginal discharge w/ a foul odor since Wednesday10/17/2018. Pt reports she has Hx of dysfunctional vaginal bleeding on and off since Jul 23/2018 when her IUD was removed. She was Placed of OCP and her menstrual cycle hasn't been regular since then. On 10/08/2018 she was seen in the ER for a severe episode of vaginal bleeding. She was schedule for a D&C in 2 days, 10/21/2018 w/ DR Luong. She finished taking a Doxycycline PO this past Wednesday and that is when she thinks her period stopped. She still has pelvic pain on and off for which is been tanking Percocet. She is very concerned about the odor. Pt denies urinary symptoms, fever, abdominal pain, flank pain, SOB, chest pain, N/V/D, Hx of STD' s.Hx obtained. Speculum exam: The vaginal luna are within normal limits w/ grayish w/ tinge of blood vaginal discharge w/ fishy odor,, no lesions or rashes.There is no CMT's, and no adnexal masses. Sample sent to Lab for G/C, trichomonas and affirm panel and genital culture. UA: + trace leukoesterase. test:negative. Pt Rx Metronidazole PO and advised to avoid drinking alcohol. Pt strongly advised to f/u her appt for the D&C on 10/21/2018 w/ Dr Luong.. Advised she will be notified if any abnormal result from lab. Pt understood and agreed with plan of care. Pt left the clinic ambulating and hemodynamically stable. - Differential Dx/Diagnosis Differential Diagnosis: Ovarian Cyst, Pelvic Inflammatory Disease, , Renal Colic, Urinary Tract Infection, Other - dysfucntional vaginal bleeding Provider Diagnosis: Bacterial vaginosis, Pelvic pain, Vaginal bleeding, abnormal Discharge - Sign-Out/Discharge Documenting (check all that apply): Patient Departure - d/c home All imaging exams completed and their final reports reviewed: No Studies - Discharge Plan Condition: Stable Disposition: HOME Prescriptions: HYDROcodone/ACETAMIN 5-325 MG* [[place] 5-325 TAB*] 1 tab PO Q8H PRN #9 tab MDD 1g /4hr-4g/day PRN Reason: Pain metroNIDAZOLE * 500 mg PO BID #14 tablet Patient Education Materials: Bacterial Vaginosis (ED) Referrals: Alpa Benoit MD [Medical Doctor] - 2 Days Josh Atkinson MD [Primary Care Provider] - 2 Days Additional Instructions: 1-Please f/u with B[employer]AN[employer] MANAGER Dr Benoit for your schedule D&C on 10/21/2018 and further management in your pelvic pain. 2- Please take medications as directed. Avoid drinking alcohol while taking medication 3- Specimen were sent to lab, if anything abnormal you will receive a call from us for further treatment. - Billing Disposition and Condition Condition: STABLE Disposition: Home
--- NOTE | 2018-10-21 16:55 | UC ---
- Progress Note Progress Note: Pos [place] Pt Rx flagyl no change ljj 10/21/18 Course/Dx - Diagnoses Provider Diagnoses: Bacterial vaginosis, Pelvic pain, Vaginal bleeding, abnormal Discharge - Sign-Out/Discharge Documenting (check all that apply): Post-Discharge Follow Up All imaging exams completed and their final reports reviewed: No Studies - Discharge Plan Condition: Stable Disposition: HOME Prescriptions: HYDROcodone/ACETAMIN 5-325 MG* [[place] 5-325 TAB*] 1 tab PO Q8H PRN #9 tab MDD 1g /4hr-4g/day PRN Reason: Pain metroNIDAZOLE * 500 mg PO BID #14 tablet Patient Education Materials: Bacterial Vaginosis (ED) Referrals: Alpa Benoit MD [Medical Doctor] - 2 Days Josh Atkinson MD [Primary Care Provider] - 2 Days Additional Instructions: 1-Please f/u with 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 2- Please take medications as directed. Avoid drinking alcohol while taking medication 3- Specimen were sent to lab, if anything abnormal you will receive a call from us for further treatment. - Billing Disposition and Condition Condition: STABLE Disposition: Home
== END 2018-10-19 11:35 | disposition home or self-care (01) ==
LOC: UCEAST 10:18
DX: N76.0 Acute vaginitis (principal); B96.89 Other specified bacterial agents as the cause of diseases classified elsewhere; R10.2 Pelvic and perineal pain; N93.9 Abnormal uterine and vaginal bleeding, unspecified; Z88.8 Allergy status to other drugs, medicaments and biological substances; F17.210 Nicotine dependence, cigarettes, uncomplicated
CPT/HCPCS: 81003; 84702; 87070; 87077; 87086; 87491; 87591; 99212; G0463

== ENCOUNTER → 2018-10-21 06:49 | Day surgery (SDC) | payer BC ==
[~2018-10-21 06:49] MED LIST changes: +Buffered Lidocaine 0.9% SYRIN* 5 ML/SYR SYRINGE INTRADERM ONE; +Chloroprocaine 2%* 20 ML VIAL ONE; +Dexamethasone IV* 4 MG/ML 1 ML (4 MG) IV SLOW PU ONE; +Dexamethasone IV* 4 MG/ML 1 ML (4 MG) ONE; +DiMENhydriNATE IV* 50 MG/ML VIAL IV PUSH PRN; +Famotidine IV* 10 MG/ML 2 ML (20 mg) IV ONE; +Famotidine IV* 10 MG/ML 2 ML (20 mg) ONE; +HYDROmorphone INJ1* 1 MG/ML SYRINGE IV PRN; +Ketorolac INJ* 30 MG/ML 1 ML VIAL ONE; +Lactated Ringers 1000 ML Bag* 1,000 ML IV SCH; +Lidocaine 2% PF * 5 ML VIAL ONE; +Midazolam* 1 MG/ML 5 ML VIAL (5 MG) ONE; +Naloxone* 0.4 MG/ML 1 ML VIAL IV PRN; +Ondansetron INJ* 2 MG/ML VIAL IV PRN; +Ondansetron INJ* 2 MG/ML VIAL ONE; +Propofol* 10 MG/ML 20 ML BTL ONE; +Scopolamine 1.5 mg* PATCH TRANSDERM PRN; +ceFAZolin 2 GM PREMIX in ORs 2 GM/50 ML BAG IVPB ONE; +fentaNYL* 50 MCG/ML 2 ML VIAL (100 MCG VIAL) IV PRN; +fentaNYL* 50 MCG/ML 2 ML VIAL (100 MCG VIAL) ONE; +oxyCODONE/Acetamin 5/325 MG* TAB ONE; -oxyCODONE/Acetamin 5/325 MG* TAB PO ONE; +oxyCODONE/Acetamin 5/325 MG* TAB PO PRN
[2018-10-21 11:05] VITALS: BP 124/69
--- NOTE | 2018-10-22 06:32 | OP ---
DATE OF OPERATION: 10/21/18 - [facility] DATE OF : 88 SURGEON: Alpa Benoit MD ANESTHESIOLOGIST: Dr. York. PRE-OP DIAGNOSIS: Irregular prolonged vaginal bleeding and lower abdominal pain. Thickened endometrium on ultrasound. POST-OP DIAGNOSIS: Irregular prolonged vaginal bleeding and lower abdominal pain. Thickened endometrium on ultrasound. OPERATIVE PROCEDURE: Dilation, hysteroscopy, MyoSure polypectomy, curettage. ESTIMATED BLOOD LOSS: Less than 20 cc. SPECIMEN: Endometrial polyp. FLUIDS: Per Anesthesia. Deficit 300 cc. FINDINGS: Small anteverted uterus. Atrophic-appearing endometrium throughout except for one isolated polyp near the right ostia. Both ostia were visualized. The uterus sounded to 9/9.5. There were no adnexal masses palpated. COMPLICATIONS: None. COUNTS: Sponge, lap, and needle count were correct x2. CONDITION: The patient was brought to the recovery room, awake and in stable condition. DESCRIPTION OF PROCEDURE: The patient was brought to the operating room. When spinal anesthesia was found to be adequate, the patient was prepped and draped in the usual sterile fashion in the dorsal lithotomy position. Time-out was performed. Exam under anesthesia was performed with the above findings noted. Weighted speculum was placed in the vagina. The anterior lip of the cervix was grasped with the single-tooth tenaculum and the cervix was gently and easily dilated with the graduated dilators. The MyoSure was introduced. Small polyp was seen near the right tubal ostia. This was removed with the MyoSure LITE in its entirety. Curettage was gently performed. Endometrial curettings and polyp were sent to Pathology. The single-tooth tenaculum was removed from the cervix. Excellent hemostasis was noted. All instruments were removed from the vagina and the patient was brought to the recovery room awake and in stable condition. [id number]/[facility] #: [id number] MTDD
== END | disposition home or self-care (01) ==
LOC: OR 06:49
PROVIDERS: ATTEND Obstetrics & Gynecology
DX: N92.6 Irregular menstruation, unspecified (principal); R10.2 Pelvic and perineal pain; N84.0 Polyp of corpus uteri; F17.210 Nicotine dependence, cigarettes, uncomplicated
CPT/HCPCS: 81025; 88305; A9270-GY; J0690; J1100; J1885; J2250; J2400; J2405; J2704; J3010

== ENCOUNTER 2019-09-06 16:51 | Emergency (ER) | payer BC ==
[2019-09-06 20:14] LABS: ABS Lymphocytes 2.6 10^3/ul (1.0-4.8); ABS Monocytes 0.4 10^3/ul (0-0.8); ABS Neutrophils 4.9 10^3/ul (1.5-7.7); Eosinophil % 0.4 %; Hematocrit 41 % (35-47); Hemoglobin 14.1 g/dL (12.0-16.0); Lymphocyte % 33.3 %; Mean Corpuscular HGB Conc 34 g/dL (31-36); Mean Corpuscular Hemoglobin 31 pg (27-31); Mean Corpuscular Volume 90 fL (80-97); Mean Platelet Volume 7.9 fL (7.4-10.4); Platelet Count 237 10^3/uL (150-450); Red Blood Count 4.59 10^6 /uL (3.70-4.87); Red Cell Distribution Width 13 % (10-15)
[2019-09-06] MEDS ORDERED: LORazepam TAB(*) 1 MG PO ONE (20:34)
[2019-09-06 20:39] LABS: HCG Pregnancy < 0.60 mIU/mL
[2019-09-06 20:40] LABS: ALT 15 U/L (7-52); AST 19 U/L (13-39); Albumin 4.3 g/dL (3.2-5.2); Albumin/Globulin Ratio 1.3 (1-3); Alkaline Phosphatase 36 U/L (34-104); Anion Gap 8 mmol/L (2-11); BUN/Creatinine Ratio 6.7 (8-20); Blood Urea Nitrogen 6 mg/dL (6-24); CO2 Carbon Dioxide 26 mmol/L (22-32); Calcium 9.2 mg/dL (8.6-10.3); Chloride 104 mmol/L (101-111); EGFR African American 90.1 (>60); EGFR Non-African American 74.5 (>60); Globulin 3.2 g/dL (2-4); Glucose 88 mg/dL (70-100); Magnesium 2.1 mg/dL (1.9-2.7); Potassium 3.9 mmol/L (3.5-5.0); Sodium 138 mmol/L (135-145); Total Protein 7.5 g/dL (6.4-8.9)
--- NOTE | 2019-09-06 20:40 | ED ---
Lower Extremity - HPI Summary HPI Summary: Pt is a 29 y/o F presenting to the ED with a chief complaint of shaking legs. Pt reports that her legs have been shaking since this morning at 0930. She took a Xanax to try and help her fall asleep, and it took her an hour to fall asleep even though it usually helps her fall asleep immediately. She woke up around 1430 still shaking, and Dr. Atkinson advised her to come here. Pt notes on May 28, and she takes two to three 1mg tabs of Xanax per day, as well as 50-100mg Trazadone to sleep, and 235mg Effexor every morning. She also notes her heart racing. Denies anything out of the ordinary happening today. No CP. - History of Current Complaint Chief Complaint: EDGeneral Stated Complaint: SHAKEY,HEART RACING PER PT Time Seen by Provider: 09/06/19 20:04 Hx Obtained From: Patient Hx Last Menstrual Period: stopped wednesday Mechanism Of Injury: Unknown Onset/Duration: Still Present Severity Currently: None Pain Intensity: 0 Pain Scale Used: 0-10 Numeric Timing: Constant, Lasting Hours Location: Is Diffuse Associated Signs And Symptoms: Positive: Negative Aggravating Factor(s): Nothing Alleviating Factor(s): Nothing Able to Bear Weight: Yes - Allergies/Home Medications Allergies/Adverse Reactions: Allergies Allergy/AdvReac Type Severity Reaction Status Date / Time banana Allergy Intermediate Anaphylatic Verified 10/21/18 07:19 Shock topiramate Allergy Intermediate Anaphylatic Verified 10/21/18 07:19 Shock Tree Nuts Allergy Intermediate Anaphylatic Verified 10/21/18 07:19 Shock PMH/Surg Hx/FS Hx/Imm Hx Previously Healthy: Yes Endocrine/Hematology History: Denies: Hx Anticoagulant Therapy, Hx Blood Disorders, Hx Diabetes, Hx Systemic Lupus Erythematosus, Hx Thyroid Disease, Hx Unexplained Bleeding Cardiovascular History: Denies: Hx Congestive Heart Failure, Hx Hypertension, Hx Pacemaker/ICD Respiratory History: Reports: Hx Pneumonia - SEP 2012, Other Respiratory Problems/Disorders - PNEUMONIA IN SEP 2012 Denies: Hx Asthma, Hx Chronic Obstructive Pulmonary Disease (COPD) GI History: Denies: Hx Ulcer History: Denies: Hx Dialysis, Hx Renal Disease Musculoskeletal History: Denies: Hx Rheumatoid Arthritis Sensory History: Reports: Hx Contacts or Glasses - INSTRUCTS GIVEN Denies: Hx Hearing Aid Opthamlomology History: Reports: Hx Contacts or Glasses - INSTRUCTS GIVEN Neurological History: Reports: Hx Migraine - 2008 Psychiatric History: Reports: Hx Anxiety, Hx Depression, Hx Inpatient Treatment , Hx Community Mental Health Tx, Hx Suicide Attempt, Hx Substance Abuse Denies: Hx Eating Disorder, Hx Panic Disorder, Hx of Violent Episodes Against Others - Cancer History Cancer Type, Location and Year: None reported Hx Chemotherapy: No - Surgical History Surgery Procedure, Year, and Place: Right shoulder arthroscopy 5 years ago Csection 2016 Hx Anesthesia Reactions: No - Immunization History Date of Tetanus Vaccine: 06/20 Date of Influenza Vaccine: Fall 2011 Infectious Disease History: No Infectious Disease History: Denies: Hx Clostridium Difficile, Hx Hepatitis, Hx Human Immunodeficiency Virus (HIV), Hx of Known/Suspected MRSA, Hx Shingles, Hx Tuberculosis, Hx Known/ Suspected VRE, Hx Known/Suspected VRSA, History Other Infectious Disease, Traveled Outside the [place] in Last 30 Days - Family History Known Family History: Positive: Diabetes, Other - dementia - Social History Alcohol Use: Rare Alcohol Amount: drank 11 beers last night Hx Substance Use: No Substance Use Type: Reports: None Substance Use Comment - 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 (-) Distressed Skin: Warm, Dry HENT: Normocephalic; Atraumatic Eyes: Conjunctiva normal Neck: Musculoskeletal ROM normal neck. (-) JVD, (-) Stridor, (-) Nuchal rigidity Cardio: Rhythm regular, rate normal, Heart sounds normal; Intact distal pulses; Radial pulses are 2+ and symmetric. (-) Murmur Pulmonary/Chest wall: Effort normal. (-) Respiratory distress, (-) Wheezes, (-) Rales Abd: Soft, (-) tenderness, (-) Distension, (-) Guarding, (-) Rebound Musculoskeletal: (-) Edema. Tremulous Lymph: (-) Cervical adenopathy Neuro: Alert, Oriented x3 Psych: Mood and affect anxious Triage Information Reviewed: Yes Vital Signs On Initial Exam: Initial Vitals Temp Pulse Resp BP Pulse Ox 98.4 F 98 16 143/94 100 09/06/19 17:14 09/06/19 17:14 09/06/19 17:14 09/06/19 17:14 09/06/19 17:14 Vital Signs Reviewed: Yes Procedures - Sedation Patient Received Moderate/Deep Sedation with Procedure: No Diagnostics - Vital Signs Vital Signs Temp Pulse Resp BP Pulse Ox 09/06/19 19:23 98.8 F 78 18 139/78 09/06/19 17:14 98.4 F 98 16 143/94 100 - Laboratory Lab Results: Lab Results 09/06/19 09/06/19 Range/Units 20:07 20:07 WBC 8.0 (3.5-10.8) 10^3/uL RBC 4.59 (3.70-4.87) 10^6 /uL Hgb 14.1 (12.0-16.0) g/dL Hct 41 (35-47) % MCV 90 (80-97) fL MCH 31 (27-31) pg MCHC 34 (31-36) g/dL RDW 13 (10-15) % Plt Count 237 (150-450) 10^3/uL MPV 7.9 (7.4-10.4) fL Neut % (Auto) 61.2 % Lymph % (Auto) 33.3 % [place] % (Auto) 4.6 % Eos % (Auto) 0.4 % Baso % (Auto) 0.5 % Absolute Neuts (auto) 4.9 (1.5-7.7) 10^3/ul Absolute Lymphs (auto) 2.6 (1.0-4.8) 10^3/ul Absolute Monos (auto) 0.4 (0-0.8) 10^3/ul Absolute Eos (auto) 0.0 (0-0.6) 10^3/ul Absolute Basos (auto) 0.0 (0-0.2) 10^3/ul Absolute Nucleated RBC 0.0 10^3/ul Nucleated RBC % 0.0 Sodium Pending Potassium Pending Chloride Pending Carbon Dioxide Pending Anion Gap Pending BUN Pending Creatinine Pending Est GFR ( Amer) Pending Est GFR (Non-Af Amer) Pending BUN/Creatinine Ratio Pending Glucose Pending Calcium Pending Magnesium Pending Total Bilirubin Pending AST Pending ALT Pending Alkaline Phosphatase Pending Troponin I 0.00 (<0.04) ng/mL Total Protein Pending Albumin Pending Globulin Pending Albumin/Globulin Ratio Pending TSH Pending Beta HCG, Quant Pending Result Diagrams: 09/06/19 20:07 09/06/19 20:07 Lab Statement: Any lab studies that have been ordered have been reviewed, and results considered in the medical decision making process. - EKG 1720 Cardiac Rate: NL - 81bpm EKG Rhythm: Sinus Rhythm ST Segment: Normal Ectopy: None Summary of EKG Findings: An EKG at 1720 reveals normal sinus rhythm 81bpm, nml axis, nml intervals. No STEMI. No acute changes. ED physician has reviewed and interpreted this EKG. Re-Evaluation - Re-Evaluation 1st re-eval Re-Evaluation Time: 21:21 Change: Improved Comment: Pt ambulated. Will be d/c'ed home. Lower Extremity Course/Dx - Course Course Of Treatment: 29 y/o F w hx anxiety and significant social stressors p/w tremors. - PE w distractable tremors LE>UE. - labs w/o abnormalities. TSH normal. Electrolytes WNL. Patient given ativan for anxiety as she takes benzos at home. - suspect 2/2 anxiety vs medication use as she is on multiple. - Diagnoses Provider Diagnoses: Tremor Discharge ED - Sign-Out/Discharge Documenting (check all that apply): Patient Departure - Discharge Plan Condition: Stable Disposition: HOME Patient Education Materials: Tremors (ED) Referrals: Josh Atkinson MD [Primary Care Provider] - Additional Instructions: You were seen in the emergency department for tremors. Your labs did not show any cause for this. If any studies were not completed at the time of discharge you will be called with the relevant results. Please follow up with your primary care doctor in next 2-3 days and return to emergency department for worsening tremors, passing out, falling down, chest pain or palpitations or concerning symptoms. It was a pleasure taking care of you today. - Billing Disposition and Condition Condition: STABLE Disposition: Home - Attestation Statements Document Initiated by Scribe: Yes Documenting Scribe: Kristy Trevizo Provider For Whom Giovanni is Documenting (Include Credential): Becky Agarwal MD. Scribe Attestation: IKristy, scribed for Becky Agarwal MD. on 09/08/19 at 1045. Scribe Documentation Reviewed: Yes Provider Attestation: The documentation as recorded by the [email or web address] accurately reflects the service I personally performed and the decisions made by , Becky Agarwal MD. Status of Scribe Document: Viewed
[2019-09-06 21:09] LABS: TSH (Thyroid Stimulating Horm) 2.34 mcIU/mL (0.34-5.60)
[2019-09-06 21:55] VITALS: BP 137/82
== END 2019-09-06 21:44 | disposition home or self-care (01) ==
LOC: ED 16:51
DX: R25.1 Tremor, unspecified (principal); F41.9 Anxiety disorder, unspecified; F32.9 Major depressive disorder, single episode, unspecified; F17.210 Nicotine dependence, cigarettes, uncomplicated; Z79.899 Other long term (current) drug therapy
CPT/HCPCS: 36415; 80053; 83605; 83735; 84443; 84484; 84702; 85025; 93005; 99282; A9270-GY

== ENCOUNTER 2019-09-09 10:02 | Emergency (ER) | payer BC ==
[2019-09-09] MEDS ORDERED: LORazepam TAB(*) 1 MG PO ONE (10:17)
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
[2019-09-09 10:30] LABS: ABS Lymphocytes 1.9 10^3/ul (1.0-4.8); ABS Monocytes 0.4 10^3/ul (0-0.8); ABS Neutrophils 6.1 10^3/ul (1.5-7.7); Eosinophil % 0.6 %; Hematocrit 43 % (35-47); Lymphocyte % 22.2 %; Mean Corpuscular HGB Conc 35 g/dL (31-36); Mean Corpuscular Hemoglobin 31 pg (27-31); Mean Corpuscular Volume 90 fL (80-97); Mean Platelet Volume 7.7 fL (7.4-10.4); Platelet Count 261 10^3/uL (150-450); Red Blood Count 4.83 10^6 /uL (3.70-4.87); Red Cell Distribution Width 13 % (10-15); White Blood Count 8.5 10^3/uL (3.5-10.8)
--- OUTSIDE RECORDS SUMMARY | 2019-09-09 10:32 | XMS REPORT | Continuity of Care Document ---
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 Onset: 09/10/2014 Generalized anxiety disorder Josh Atkinson M.D. Onset: 03/29/2014 Dysthymia Josh Atkinson M.D. Onset: 03/29/2014 Social History Type Date Description Comments Sex Unknown ETOH Use Denies alcohol use Recreational Drug Use Denies Drug Use Tobacco Use Start: Unknown End: Patient is a former smoker Quit 10/2017 Unknown Smoking Status Reviewed: 05/23/19 Patient is a former smoker Quit 10/2017 Allergies, Adverse Reactions, Alerts Active Allergies Reaction Severity Comments Date Topamax 03/29/2014 bananas 03/29/2014 Nuts 03/29/2014 Medications Active Medications SIG Qnty Indications Ordering Provider Date Propranolol HCL take 2 tablets 60tabs Vaishnavi Leal, 09/07/2019 20mg by mouth every [employer] Tablets day Venlafaxine HCL ER take 3 capsule 30caps F34.1 Josh Atkinson, 11/28/2018 75mg by mouth once M.D. Caps ER 24HR daily F41.1 Xanax 0.5 mg to 1 mg three times 90tabs Vaishnavi Leal, 1mg Tablets daily as needed for [employer] anxiety/caution sedation/ caution, this medication is habit forming Nortrel 1/35 (21) take as directed Unknown 1-35mg-mcg Tablets Trazodone HCL take 1 to 2 tablets by Unknown 50mg mouth at bedtime as needed Tablets for sleep History Medications Trazodone HCL 1 -2 by mouth 60tabs Vaishnavi Leal, 06/03/2019 - 50mg every night at [facility] 08/23/2019 Tablets bedtime as needed insomnia Medications Administered in Office Medication SIG Qnty Indications Ordering Provider Date TB Intradermal Test Vaishnavi Leal, [facility] 10/19/2014 Injection TB Intradermal Test Vaishnavi Leal, [facility] 10/08/2014 Injection Immunizations CPT Code Status Date Vaccine Lot # [id number] Given 08/23/2019 Influenza Vac, Quadrivalent, Slit Virus, Im [id number] Given 07/08/2017 Tdap Tetanus, W Pertussis [id number] Given 10/08/2014 Pneumococcal Conjugate Vacc-13 [id number] Given 08/13/2014 DO Not Use Split Influenza Virus Vaccine [id number] Vital Signs Date Vital Result Comment 09/07/2019 10:25am BP Systolic 106 mmHg BP Diastolic 80 mmHg Heart Rate 78 /min Body Temperature 97.3 F Height 70.5 inches 5'10.50" Weight 189.00 lb BMI (Body Mass Index) 26.7 kg/m2 08/23/2019 7:58am BP Systolic 112 mmHg BP Diastolic 76 mmHg Heart Rate 76 /min Body Temperature 98.2 F Respiratory Rate 16 /min Height 70.5 inches 5'10.50" Weight 188.00 lb BMI (Body Mass Index) 26.6 kg/m2 Results Test Date Facility Test Result H/L Range Note Laboratory test 09/07/2019 [facility] Prolactin <pending> finding [address] [place] [address] (607)- - Laboratory test 09/07/2019 [facility] Rapid Plasma <pending> finding [address] [facility] [address] ([facility]) [place] [address] Qual Test (607)- - CBC Electronic 09/07/2019 [facility](fma) WBC 5.4 x10^3/UL 4.0-10.0 Fma RBC 4.51 x10^6/UL 3.93-6.00 HGB 13.9 g/dL 12.0-17.0 HCT 41 % 35-50 MCV 91.1 fL 80.0-95.0 MCH 30.8 pg 25.6-32.2 MCHC 33.8 g/dL 32.2-36.0 RDW-CV 11.7 % 11.6-14.4 PLT 236 x10^3/UL 163-400 MPV 9.7 fL 9.4-12.4 Devi# 3.37 x10^3/UL 1.56-6.13 Lymph# 1.66 x10^3/UL 1.18-3.74 [place]# 0.32 x10^3/UL 0.24-0.82 Eos # 0.0 x10^3/UL 0.0-0.5 Baso # 0.01 x10^3/UL 0.01-0.08 Devi% 62.7 % 34.0-70.0 Lymph % 30.9 % 20.0-52.0 [place]% 6.0 % 5.0-12.0 Eos% 0.2 % Low 0.7-7.0 Baso% 0.2 % 0.1-1.2 CBC Auto Diff 09/06/2019 [facility] [place] Blood Count 8.0 10^3/uL Normal 3.5- 10.8 Red Blood Count 4.59 10^6/uL Normal 3.70-4.87 Hemoglobin 14.1 g/dL Normal 12.0-16.0 Hematocrit 41 % Normal 35-47 Mean Corpuscular Volume 90 fL Normal 80-97 Mean Corpuscular Hemoglobin 31 pg Normal 27-31 Mean Corpuscular HGB Conc 34 g/dL Normal 31-36 Red Cell Distribution Width 13 % Normal 10-15 Platelet Count 237 10^3/uL Normal 150-450 Mean Platelet Volume 7.9 fL Normal 7.4-10.4 Abs Neutrophils 4.9 10^3/uL Normal 1.5-7.7 Abs Lymphocytes 2.6 10^3/uL Normal 1.0-4.8 Abs Monocytes 0.4 10^3/uL Normal 0-0.8 Abs Eosinophils 0.0 10^3/uL Normal 0-0.6 Abs Basophils 0.0 10^3/uL Normal 0-0.2 Abs Nucleated RBC 0.0 10^3/uL Granulocyte % 61.2 % Lymphocyte % 33.3 % Monocyte % 4.6 % Eosinophil % 0.4 % Basophil % 0.5 % Nucleated Red Blood Cells % 0.0 Laboratory test finding 09/06/2019 [facility] [place] Lactic Acid 0.7 mmol/L Normal 0.5- 2.0 1 Troponin-I (TnI) 0.00 ng/mL <0.04 2 HCG < 0.60 mIU/mL 3 Comp Metabolic Panel 09/06/2019 [facility] [place] Sodium 138 mmol/L Normal 135-145 Potassium 3.9 mmol/L Normal 3.5-5.0 Chloride 104 mmol/L Normal 101-111 Co2 Carbon Dioxide 26 mmol/L Normal 22-32 Anion Gap 8 mmol/L Normal 2-11 Glucose 88 mg/dL Normal 70-100 Blood Urea Nitrogen 6 mg/dL Normal 6-24 Creatinine 0.89 mg/dL Normal 0.51-0.95 BUN/Creatinine Ratio 6.7 Low 8-20 Calcium 9.2 mg/dL Normal 8.6-10.3 Total Protein 7.5 g/dL Normal 6.4-8.9 Albumin 4.3 g/dL Normal 3.2-5.2 Globulin 3.2 g/dL Normal 2-4 Albumin/Globulin Ratio 1.3 Normal 1-3 Total Bilirubin 0.50 mg/dL Normal 0.2-1.0 Alkaline Phosphatase 36 U/L Normal 34-104 Alt 15 U/L Normal 7-52 Ast 19 U/L Normal 13-39 Egfr Non- 74.5 >60 Egfr 90.1 >60 4 Laboratory test finding 09/06/2019 [facility] [place] Magnesium 2.1 mg/dL Normal 1.9- 2.7 TSH (Thyroid Stim Horm) 2.34 mcIU/mL Normal 0.34-5.60 1 [facility] Severe Sepsis and Septic Shock Management Bundle Measure requires all lactic acids initially measuring >2.0 mmol/L be repeated. 2 Troponin-I testing on Plasma Separator Tubes (PST) has a known false positive rate of 0.20-0.40%. All positive troponins reflex immediately to secondary confirmatory testing. Using the [employer] DxI 800 Access Immunoassay systems, the 99th percentile upper reference limit was demonstrated to be < 0.03 ng/mL. 3 <5.0 Negative 5.0 - 25.0 Indeterminate (Repeat testing recommended after 72 hours) >25.0 Positive Perimenopausal women can display HCG levels of up to 20 mIU/mL 4 Because ethnic data is not always readily [...] 15-29 5 Kidney failure <15 (or dialysis) Procedures Date Code Description Status 06/03/2019 74411 Brief Emotional/Behav Assessment W/ Scoring Doc Per Completed [facility] Medical Devices Description No Information Available Encounters Type Date Location Provider Dx Diagnosis Office Visit 08/23/2019 [facility] Office Josh Atkinson, F43.23 Adjustment 8:00a M.D. disorder with mixed anxiety and depressed mood E04.9 Nontoxic goiter, unspecified Z23 Encounter for immunization Office Visit 06/22/2019 9:00a [facility] Office Vaishnavi F43.23 Adjustment Mel, [employer] disorder with mixed anxiety and depressed mood G47.00 Insomnia, unspecified R19.7 Diarrhea, unspecified F41.9 Anxiety disorder, unspecified Office Visit 06/03/2019 9:00a [facility] Office Vaishnavi F43.23 Adjustment Mel, [employer] disorder with mixed anxiety and depressed mood G47.00 Insomnia, unspecified R19.7 Diarrhea, unspecified Office Visit 05/23/2019 1:45p [facility] Office Clari Baxter F41.9 Anxiety disorder, ESDRAS Nix unspecified Assessments Date Code Description Provider 09/07/2019 R25.1 Tremor, unspecified Vaishnavi Mel, [employer] 08/23/2019 F43.23 Adjustment disorder with mixed anxiety and Josh Atkinson M.D. depressed mood 08/23/2019 E04.9 Nontoxic goiter, unspecified Josh Atkinson M.D. 08/23/2019 Z23 Encounter for immunization Josh Atkinson M.D. 06/22/2019 F43.23 Adjustment disorder with mixed anxiety and Vaishnavi Mel, [employer] depressed mood 06/22/2019 G47.00 Insomnia, unspecified Vaishnavi Mel, [employer] 06/22/2019 R19.7 Diarrhea, unspecified Vaishnavi Mel, [employer] 06/22/2019 F41.9 Anxiety disorder, unspecified Vaishnavi Mel, [employer] 06/03/2019 F43.23 Adjustment disorder with mixed anxiety and Vaishnavi Mel, [employer] depressed mood 06/03/2019 G47.00 Insomnia, unspecified Vaishnavi Mel, [employer] 06/03/2019 R19.7 Diarrhea, unspecified Vaishnavi Mel, [employer] 05/23/2019 F41.9 Anxiety disorder, unspecified ESDRAS Bertrand Plan of Treatment Future Appointment(s):10/11/2019 10:30 am - ROSENDA Wooten at [facility] Myqhpj5509/07/2019 - OLINDA WootenPR25.1 Tremor, unspecifiedAllNew Medication:Propranolol HCL 20 mg - take 2 tablets by mouth every dayComments: Medication Management Patient Understands medications he 's taking? Yes No Are there Barriers to Adherence? Yes No Has the patient been asked about herbal supplements and therapies, [facility]? Yes No As always, we strongly encourage a healthy diet and making physical activity a part of your every day life. If you have questions about how or where to start, please contact the office. Functional Status Description No Information Available Mental Status Description No Information Available Referrals Description No Information Available
[2019-09-09 10:46] LABS: ALT 29 U/L (7-52); AST 23 U/L (13-39); Albumin 4.5 g/dL (3.2-5.2); Albumin/Globulin Ratio 1.6 (1-3); Alkaline Phosphatase 40 U/L (34-104); Anion Gap 8 mmol/L (2-11); BUN/Creatinine Ratio 7.5 (8-20); Blood Urea Nitrogen 7 mg/dL (6-24); CO2 Carbon Dioxide 24 mmol/L (22-32); Calcium 8.9 mg/dL (8.6-10.3); Chloride 105 mmol/L (101-111); EGFR African American 85.7 (>60); EGFR Non-African American 70.8 (>60); Globulin 2.9 g/dL (2-4); Glucose 88 mg/dL (70-100); Potassium 4.1 mmol/L (3.5-5.0); Sodium 137 mmol/L (135-145); Total Protein 7.4 g/dL (6.4-8.9)
[2019-09-09 10:57] LABS: Acetaminophen < 15 mcg/mL; Alcohol 36 mg/dL (<10); Salicylate < 2.50 mg/dL (<30)
[2019-09-09 11:12] LABS: TSH (Thyroid Stimulating Horm) 1.72 mcIU/mL (0.34-5.60)
[2019-09-09 11:52] VITALS: BP 119/74
== END 2019-09-09 11:40 | disposition home or self-care (01) ==
LOC: ED 10:02
DX: F43.22 Adjustment disorder with anxiety (principal); F32.9 Major depressive disorder, single episode, unspecified; F13.10 Sedative, hypnotic or anxiolytic abuse, uncomplicated; Z79.899 Other long term (current) drug therapy; Z91.018 Allergy to other foods; Z88.8 Allergy status to other drugs, medicaments and biological substances; F17.210 Nicotine dependence, cigarettes, uncomplicated
CPT/HCPCS: 36415; 80053; 80320; 80329; 84443; 85025; 99283; A9270-GY; G0480

== ENCOUNTER 2020-11-06 23:47 | Inpatient (IN) ==
[2020-11-07 01:02] LABS: ABS Lymphocytes 2.1 10^3/ul (1.0-4.8); ABS Monocytes 0.3 10^3/ul (0-0.8); ABS Neutrophils 3.9 10^3/ul (1.5-7.7); Eosinophil % 0.4 %; Hematocrit 44 % (35-47); Hemoglobin 15.1 g/dL (12.0-16.0); Lymphocyte % 32.3 %; Mean Corpuscular HGB Conc 35 g/dL (31-36); Mean Corpuscular Hemoglobin 31 pg (27-31); Mean Corpuscular Volume 90 fL (80-97); Mean Platelet Volume 7.2 fL (7.4-10.4); Nucleated Red Blood Cells % 0.1; Platelet Count 251 10^3/uL (150-450); Red Cell Distribution Width 14 % (10-15); White Blood Count 6.4 10^3/uL (3.5-10.8)
[2020-11-07 01:16] LABS: ALT 14 U/L (7-52); AST 16 U/L (13-39); Albumin 4.4 g/dL (3.2-5.2); Albumin/Globulin Ratio 1.5 (1-3); Alkaline Phosphatase 48 U/L (34-104); Anion Gap 8 mmol/L (2-11); BUN/Creatinine Ratio 17.3 (8-20); Blood Urea Nitrogen 14 mg/dL (6-24); CO2 Carbon Dioxide 24 mmol/L (22-32); Calcium 8.9 mg/dL (8.6-10.3); Chloride 108 mmol/L (101-111); EGFR African American 99.8 (>60); EGFR Non-African American 82.5 (>60); Glucose 110 mg/dL (70-100); Potassium 3.9 mmol/L (3.5-5.0); Sodium 140 mmol/L (135-145); Total Protein 7.4 g/dL (6.4-8.9)
[2020-11-07 01:17] LABS: Acetaminophen < 15 mcg/mL; Alcohol, S 193 mg/dL (<10); Salicylate < 2.50 mg/dL (<30)
[2020-11-07 01:18] LABS: Urine Benzodiazepine Screen None Detected (None Detect); Urine Cannabinoids Screen None Detected (None Detect); Urine Opiates Screen None Detected (None Detect)
[2020-11-07 01:22] LABS: HCG Pregnancy < 0.60 mIU/mL
[2020-11-07 01:31] LABS: TSH Ultra Thyroid Stim Horm 1.66 mcIU/mL (0.34-5.60)
[2020-11-07] MEDS ORDERED: LORazepam 2 mg VIAL 1 ml IV PUSH ONE ×3 (01:34→03:53)
[2020-11-07] MEDS ORDERED: Lorazepam PYXIS KEY PRN ×4 (01:34→04:10)
[2020-11-07 01:38] LABS: Urine Appearance Clear; Urine Bilirubin Negative (Negative); Urine Blood Negative (Negative); Urine Color Straw; Urine Glucose Negative (Negative); Urine Ketones Negative (Negative); Urine Nitrite Negative (Negative); Urine Protein Negative (Negative); Urine Specific Gravity 1.004 (1.010-1.030); Urine Urobilinogen Negative (Negative)
[2020-11-07] MEDS ORDERED: NS 0.9% 1000 ml BAG 1,000 ML IV ONE (02:05)
[2020-11-07] MEDS ORDERED: LORazepam 2 mg VIAL 1 ml IM ONE (04:10)
[2020-11-07] MEDS ORDERED: Al Hydrox/Mg Hydrox/Simet LIQ 30 ML UDC PO PRN (06:37)
[2020-11-07] MEDS ORDERED: Nicotine GUM 2MG FRUIT FLAVOR PO PRN (07:00)
[2020-11-07] MEDS: Vitamin THERAPEUTIC TAB PO SCH (12:20)
[2020-11-07] MEDS ORDERED: LORazepam IM 0-6 mg for WAM protocol IM SCH (13:00)
[2020-11-07] MEDS ORDERED: LORazepam PO (enter doses in WAM protocol) PO SCH (13:00)
[2020-11-07] MEDS: LORazepam PO 0-6 for WAM protocol PO SCH ×2 (14:17→20:23)
[2020-11-08] MEDS: Folic Acid TAB* 1 MG DAILY PO SCH (09:15)
[2020-11-08] MEDS: Thiamine TAB* 100 MG TAB DAILY (@ T+1) PO SCH (09:15)
[2020-11-08] MEDS: Vitamin THERAPEUTIC TAB PO SCH (09:15)
[2020-11-08] MEDS: LORazepam PO 0-6 for WAM protocol PO SCH ×2 (13:19→19:02)
[2020-11-09] MEDS: LORazepam PO 0-6 for WAM protocol PO SCH ×2 (02:44→19:15)
[2020-11-09] MEDS: Folic Acid TAB* 1 MG DAILY PO SCH (11:23)
[2020-11-09] MEDS: Thiamine TAB* 100 MG TAB DAILY (@ T+1) PO SCH (11:24)
[2020-11-09] MEDS: Vitamin THERAPEUTIC TAB PO SCH (11:24)
[2020-11-09 21:28] LABS: ALT 12 U/L (7-52); AST 17 U/L (13-39); Albumin/Globulin Ratio 1.3 (1-3); Alkaline Phosphatase 52 U/L (34-104); Anion Gap 5 mmol/L (2-11); BUN/Creatinine Ratio 21.3 (8-20); Blood Urea Nitrogen 19 mg/dL (6-24); CO2 Carbon Dioxide 27 mmol/L (22-32); Calcium 9.5 mg/dL (8.6-10.3); Chloride 105 mmol/L (101-111); EGFR African American 89.5 (>60); Glucose 107 mg/dL (70-100); Lipase 25 U/L (11.0-82.0); Potassium 4.7 mmol/L (3.5-5.0); Sodium 137 mmol/L (135-145)
[2020-11-09] MEDS: Ondansetron ODT 4 mg TAB 4 MG TAB SL PRN (22:21)
[2020-11-10] MEDS: LORazepam PO 0-6 for WAM protocol PO SCH ×4 (01:17→19:27)
[2020-11-10] MEDS: Thiamine TAB* 100 MG TAB DAILY (@ T+1) PO SCH (08:07)
[2020-11-10] MEDS: Folic Acid TAB* 1 MG DAILY PO SCH (08:07)
[2020-11-10] MEDS: Vitamin THERAPEUTIC TAB PO SCH (08:07)
[2020-11-10 09:03] LABS: HCG Pregnancy < 0.60 mIU/mL
[2020-11-10] MEDS: Ondansetron ODT 4 mg TAB 4 MG TAB SL PRN ×2 (14:47→20:45)
[2020-11-11] MEDS: Vitamin THERAPEUTIC TAB PO SCH (08:24)
[2020-11-11] MEDS: Thiamine TAB* 100 MG TAB DAILY (@ T+1) PO SCH (08:24)
[2020-11-11] MEDS: Ondansetron ODT 4 mg TAB 4 MG TAB SL PRN (08:24)
[2020-11-11] MEDS: Folic Acid TAB* 1 MG DAILY PO SCH (08:24)
[2020-11-12] MEDS: Folic Acid TAB* 1 MG DAILY PO SCH (08:41)
[2020-11-12] MEDS: Thiamine TAB* 100 MG TAB DAILY (@ T+1) PO SCH (08:42)
[2020-11-12] MEDS: Vitamin THERAPEUTIC TAB PO SCH (08:42)
[2020-11-12 09:08] VITALS: BP 119/68
== END 2020-11-12 15:27 | disposition home or self-care (01) | DRG 775 ==
LOC: ED 23:47 → BSU 11-07 08:04
PROVIDERS: ADMIT Psychiatry & Neurology Psychiatry; ATTEND Psychiatry & Neurology Psychiatry